=== PATIENT | male | born 1940 | race Caucasian/White ===

== ENCOUNTER → 2019-05-02 | Outpatient (CLI) | payer MEDICARE ==
[~2019-05-02] MED LIST: ACHYD1T PO; ALEN70TA5 PO; ALN70T PO; ASPI-587 PO; ASPI-983 PO; BUDE6HFA IH; CALC625T68 PO; CEFD300C3 PO; DCS100C PO; DOCU100C37 PO; FISH1CAP15 PO; FLUT16SP22 NS; FLUT1BLS IH; FURO20TA4 PO; GUAI-367 PO; GUAI600T43 PO; HYDR-3816 PO; HYDR1TAB75 PO; IPRA3AMP IH; IPRA3AMP31 IH; LEVO500T80 PO; LISI10TA2 PO; LORA-877 PO; LORA0.5T PO; LORA1TAB59 PO; MAGN400C PO; MAGNESIUM W/ZINC PO; MONT10TA24 PO; MULT-974 PO; MULT-993 PO; NICO-588 TD; OXYM30SP NS; PRED10TA22 PO; RANI150T11 PO; RANI75TA30 PO; RT-ALBUTEROL SULF 2.5 MG/3 ML PRE-MIX VIAL INH ONE; TAMS0.4C98 PO; TMSL.4C PO; TRIA10.8 NS; ZLP10T PO; ZOLP5TAB7 PO; Zolpidem Tartrate PO
== END ==
LOC: RT 10:25
PROVIDERS: ATTEND Internal Medicine Critical Care Medicine
DX: J44.9 Chronic obstructive pulmonary disease, unspecified (principal)
CPT/HCPCS: 94060; 94726; 94729

== ENCOUNTER 2019-05-09 12:44 | Outpatient (RCR) | payer MEDICARE ==
[~2019-05-09 12:44] MED LIST changes: -RT-ALBUTEROL SULF 2.5 MG/3 ML PRE-MIX VIAL INH ONE
[2019-05-17 10:25] VITALS: BP 123/50
[2019-05-17 11:30] VITALS: BP 114/40
[2019-05-19 10:10] VITALS: BP 116/40
[2019-05-19 11:23] VITALS: BP 120/70
[2019-05-24 10:45] VITALS: BP 97/50
[2019-05-24 11:45] VITALS: BP 102/60
[2019-05-26 10:20] VITALS: BP 118/54
[2019-05-26 11:40] VITALS: BP 118/60
[2019-05-31 10:15] VITALS: BP 118/60
[2019-05-31 11:27] VITALS: BP 123/60
[2019-06-07 10:30] VITALS: BP 110/50
[2019-06-07 12:00] VITALS: BP 108/54
[2019-06-09 11:00] VITALS: BP 115/50
[2019-06-14 09:30] VITALS: BP 108/50
[2019-06-16 10:10] VITALS: BP 128/50
[2019-06-16 11:40] VITALS: BP 128/60
[2019-06-21 10:45] VITALS: BP 120/52
[2019-06-21 12:00] VITALS: BP 150/60
[2019-06-23 10:45] VITALS: BP 130/60
[2019-06-23 11:42] VITALS: BP 125/60
[2019-06-28 10:45] VITALS: BP 140/60
[2019-06-28 11:35] VITALS: BP 130/60
[2019-06-28 11:50] VITALS: BP 130/60
[2019-06-30 10:30] VITALS: BP 120/60
[2019-06-30 11:38] VITALS: BP 120/57
[2019-07-05 10:45] VITALS: BP 120/60
[2019-07-05 12:00] VITALS: BP 140/60
[2019-07-07 10:30] VITALS: BP 112/58
[2019-07-07 11:34] VITALS: BP 118/58
[2019-07-12 10:45] VITALS: BP 130/60
[2019-07-12 11:54] VITALS: BP 120/60
[2019-07-14 10:45] VITALS: BP 118/60
[2019-07-14 11:54] VITALS: BP 102/64
[2019-07-19 10:30] VITALS: BP 97/50
[2019-07-19 11:30] VITALS: BP 104/60
== END 2019-08-07 | disposition home or self-care (01) ==
LOC: RT 12:44
PROVIDERS: ATTEND Internal Medicine Critical Care Medicine
DX: J44.9 Chronic obstructive pulmonary disease, unspecified (principal)
CPT/HCPCS: 99211

== ENCOUNTER 2020-02-08 21:24 | Emergency (ER) | payer MEDICARE ==
[~2020-02-08] VITALS: Ht 167.7 cm; Wt 63.4 kg
[~2020-02-08 21:24] MED LIST changes: +HYDR-34 PO; -HYDR-3816 PO; -MONT10TA24 PO; +MONT10TA26 PO; -TAMS0.4C98 PO
--- NOTE | 2020-02-08 22:27 | ED General ---
General Chief Complaint: Skin/Wound Problems Stated Complaint: EAR BIOPSY SITE BROKEN OPEN Nursing Triage Note: pt had right ear biopsy today for possible skin cancer. pt previously has had partial removal of upper ear for skin cancer on the right. dressing removed and new dressing applied Nursing Sepsis Screen: No Definite Risk Source of Information: Patient, Spouse History of Present Illness Date Seen by Provider: Feb 08, 2020 Time Seen by Provider: 22:26 Initial Comments 79-year-old male presenting with bleeding from biopsy site on his right ear. He was in [place] today and had been area on his right ear that was possibly infected and possibly cancerous. The rubber boots and shoes repairer had performed a biopsy of the site. There was oozing and bleeding but it was cauterized prior to them leaving the clinic. However in the trip from [place] to home but it started this. After getting home the oozing continued to get heavier in the degree of bleeding. When they could not get the bleeding to stop and be controlled at home they came to the emergency department to have it evaluated. He does not take any blood thinner other than aspirin. He is not having any significant pain with his ear. He has no fever or chills. His thinks that maybe the oxygen tubing he wears had rubbed against the biopsy site and caused it to start bleeding. Also he had been picking at the wound some on the trip home. Allergies and Home Medications Allergies Coded Allergies: No Known Drug Allergies (Unverified , 04/13/19) Home Medications Alendronate Sodium 70 Mg Tablet, 70 MG PO Mo, (Reported) Aspirin 81 Mg Tablet.dr, 81 MG PO HS, (Reported) Cefdinir 300 Mg Capsule, 300 MG PO BID Prescribed by: JAYESH GOVEA on 04/19/19 1013 Docusate Sodium 100 Mg Capsule, 200 MG PO BID, (Reported) TAKES 2 (100MG) CAPSULES Fish Oil/Dha/Epa 1 Each Capsule, 2,400 MG PO BID, (Reported) Fluticasone Propionate 16 Gm [place].susp, 2 SPRAYS NS DAILY, (Reported) Fluticasone/Vilanterol 1 Each Blst.w.dev, 1 PUFF IH HS, (Reported) Furosemide 20 Mg Tablet, 40 MG PO MoWeFr, (Reported) TAKES 2 (20MG) TABLETS Guaifenesin 600 Mg Tab.er.12h, 600 MG PO BID Prescribed by: JAYESH GOVEA on 04/19/19 1013 Guaifenesin/Dextromethorphan 1 Each Tab.er.12h, 1 TAB PO Q12H, (Reported) Hydrocodone Bit/Acetaminophen 1 Each Tablet, 1 TAB PO Q6H PRN for PAIN-MODERATE, (Reported) Ipratropium/Albuterol Sulfate 3 Ml Ampul.neb, 3 ML IH Q4H PRN for SHORTNESS OF BREATH, (Reported) Lisinopril 10 Mg Tablet, 10 MG PO DAILY, (Reported) Loratadine/Pseudoephedrine 1 Each Tab.er.24h, 1 TAB PO DAILY, (Reported) Lorazepam 0.5 Mg Tablet, 0.5 MG PO Q8H PRN for ANXIETY Prescribed by: JAYESH GOVEA on 04/20/19 1102 Magnesium Oxide 400 Mg Capsule, 400 MG PO HS, (Reported) Montelukast Sodium 10 Mg Tablet, 10 MG PO HS Prescribed by: JAYESH GOVEA on 04/19/19 1013 Multivits-Minerals/FA/Lycopene 1 Each Tablet, 1 TAB PO DAILY, (Reported) Nicotine 1 Each Patch.td24, 21 MG TD DAILY Prescribed by: JAYESH GOVEA on 04/19/19 1013 Prednisone 10 Mg Tab.ds.pk, 10 MG PO DAILY Take 6 tabs(60mg)daily,decrease by 1 tab(10MG)daily. Prescribed by: JAYESH GOVEA on 04/19/19 1013 Ranitidine HCl 150 Mg Tablet, 75 MG PO BID, (Reported) TAKES 1/2 (150MG) TABLET Tamsulosin HCl 0.4 Mg Cap, 0.4 MG PO DAILY, (Reported) Triamcinolone Acetonide 10.8 Ml [place], 2 SPRAYS NS HS, (Reported) Zolpidem Tartrate 5 Mg Tablet, 5 MG PO HS, (Reported) [Zolpidem Tartrate] 5 MG TAB, 0 MG PO HS Prescribed by: JAYESH GOVEA on 04/20/19 1102 Patient Home Medication List Home Medication List Reviewed: Yes Review of Systems Review of Systems Constitutional: No chills, No fever EENTM: see HPI Respiratory: no symptoms reported Cardiovascular: no symptoms reported Gastrointestinal: no symptoms reported Genitourinary: no symptoms reported Musculoskeletal: no symptoms reported Skin: see HPI Psychiatric/Neurological: No Symptoms Reported Hematologic/Lymphatic: See HPI Past Egyhcjs-Xvlqni-Hslxxj Hx Past Med/Social Hx: Reviewed Nursing Past Med/Soc Hx Patient Social History Alcohol Use: Denies Use Recreational Drug Use: No Type Used: Cigarettes 2nd Hand Smoke Exposure: Yes Recent Foreign Travel: No Contact w/Someone Who Travel: No Recent Infectious Disease Expo: No Physical Abuse: No Sexual Abuse: No Mistreated: No Fear: No Immunizations Up To Date Date of Pneumonia Vaccine: Sep 14, 2017 Date of Influenza Vaccine: Aug 30, 2013 Seasonal Allergies Seasonal Allergies: No Past Medical History Surgeries: Yes CABG Respiratory: Yes COPD Cardiac: Yes Chronic Edema/Swelling, Coronary Artery Disease, High Cholesterol, Hypertension Neurological: No Genitourinary: Yes Prostate Problems Gastrointestinal: No (CONSTIPATION) Musculoskeletal: Yes (ARTHRITIS) Endocrine: No HEENT: No Cancer: Yes Prostate Psychosocial: No Integumentary: No Blood Disorders: No Adverse Reaction/Blood Tranf: No Family Medical History No Pertinent Family Hx Physical Exam Vital Signs Vital Signs - First Documented 02/08/20 22:00 Temp 36.6 Pulse 75 Resp 18 B/P (MAP) 163/60 (94) Pulse Ox 97 O2 Delivery Room Air Capillary Refill : Less Than 3 Seconds Height, Weight, BMI Height: 5'7.00" Weight: 146lbs. 0.2oz. [id number]; 22.00 BMI Method:Stated General Appearance: No Apparent Distress, WD/WN HEENT: PERRL/EOMI, Moist Mucous Membranes, Other (bleeding from the biopsy site on the right pinna) Neck: Full Range of Motion, Normal Inspection, Non Tender, Supple Respiratory: Chest Non Tender, Lungs Clear, Normal Breath Sounds Cardiovascular: Regular Rate, Rhythm Neurologic/Psychiatric: Alert, Oriented x3 Skin: Normal Color, Warm/Dry Procedures/Interventions Wound Location: Ears Wound Length (cm): 0.3 Wound's Depth, Shape: superficial, irregular Wound Explored: clean Progress The biopsy site that was oozing on his right pinna was approximately 0.3 cm and irregular. This was cauterized with a silver nitrate stick. He tolerated procedure well without any immediate complications. Bleeding was well-controlled without any additional bleeding at the time of discharge. Progress/Results/Core Measures Suspected Sepsis Recent Fever Within 48 Hours: No Infection Criteria Present: None New/Unexplained Altered Menta: No Sepsis Screen: No Definite Risk SIRS Temperature: Pulse: 75 Respiratory Rate: 18 Blood Pressure 163 /60 Mean: 94 Results/Orders Vital Signs/I&O 02/08/20 02/08/20 22:00 23:07 Temp 36.6 Pulse 75 65 Resp 18 18 B/P (MAP) 163/60 (94) 156/59 Pulse Ox 97 98 O2 Delivery Room Air Room Air Capillary Refill : Less Than 3 Seconds Blood Pressure Mean: 94 Progress Note : Progress Note Using a silver nitrate stick the area of oozing on his right pinna was isolated and then cauterized. This controlled his bleeding and he had no further bleeding or oozing while in the ED. Counseled on follow up and return precautions. Advised to hold constant pressure for 5 minutes if it started to bleed again. Tape the oxygen tubing to his face to prevent it from rubbing on his wound of the right pinna for the next few days. Departure Impression Primary Impression: Lesion of pinna Qualified Codes: H61.101 - Unspecified noninfective disorders of pinna, right ear Additional Impression: Bleeding from wound Disposition: HOME, SELF-CARE Condition: Stable Departure-Patient Inst. Decision time for Depature: 23:02 Referrals: AUBREY GRAY MD (PCP/Family) Primary Care Physician Patient Instructions: Wound Care (DC) Add. Discharge Instructions: Keep wound clean and follow directions from your surgeon in [place]. Try taping your oxygen tubing to your face for the next few days to avoid it rubbing on your ear. If you have more bleeding try holding direct pressure for 5 minutes solid. If this does not get the bleeding to stop then you could return and have it cauterized again in the ER or clinic. All discharge instructions reviewed with patient and/or family. Voiced understanding. Images Ear 1 - Laceration (Prior resection of pinna) 2 - Blood (area of bleeding/oozing from biopsy) SHANICE BHAT MD Feb 08, 2020 22:26
--- NOTE | 2020-02-08 23:00 | NUR ---
Dr miller cauterized wound with silver nitrate, wound cleaned with soap and water, turban head drsg placed, no bleeding noted.
[2020-02-08 23:07] VITALS: BP 156/59
--- OUTSIDE RECORDS SUMMARY | 2020-02-10 23:52 | XMS REPORT | Encounter Summary ---
Author Author [facility] Organization [facility] Address Unknown Phone Unavailable Care Team Providers Care Child Welfare Counselor Name Role Phone Rafiq Solorio MD Unavailable Darrell Kemp PA-C Unavailable Unavailable Sandrine Meeks COMIC BOOK ARTIST-MATTRESS INSPECTOR Unavailable [phone] Ying Arevalo RN Unavailable Unavailable Liam Mitchell MD Unavailable Unavailable Arlette Healy RN Unavailable Unavailable Yessy Brownlee RN Unavailable Unavailable Pardeep Bettencourt RN Unavailable Unavailable Kimmie Sanchez LPN Unavailable Unavailable Cammie Nation MD PCP Unavailable Reason for Visit * Reason Comments Follow-up Phone Call Encounter Details Care Team Description Date Type Department Gaby Spivey PA-C [address] [facility] [address] [place] [address] Follow-up Phone Call 01/26/2020 Telephone [facility] [address] [place] [address] Social History Date Tobacco Use Types Packs/Day Years Used Current Every Day Smoker Cigarettes 1.5 60 Smokeless Tobacco: Never Used Comments: Counseling given 12.4.14 Drinks/Week oz/Week Comments Alcohol Use No Sex Assigned at Date Recorded Not on file Industry Job Start Date Occupation Not on file Not on file Not on file Travel End Travel History Travel Start No recent travel history available. documented as of this encounter Functional Status Date of Assessment Functional Status Response 04/12/2015 Does the patient have a hearing impairment: No 04/12/2015 Does the patient have a visual impairment: Yes 04/12/2015 Does the patient have impaired ambulation: No 04/12/2015 Does the patient have an activity of daily living No (ADL) impairment: 04/12/2015 Does the patient have an instrumental activity of No daily living (IADL) impairment: Date of Assessment Cognitive Status Response 04/12/2015 Does the patient have a cognitive impairment: No documented as of this encounter Miscellaneous Notes * Telephone Encounter - Millie Mason MA - 01/26/2020 4:02 PM [employer]IRY FARMER Arline lackey/Dr. Mooney's office return call and confirm message received left by Rachelle walton. [employer] FARMER * Telephone Encounter - Gaby Spivey PA-C - 01/26/2020 3:24 PM [employer] Called and left message for the patient's public housing manager regarding right ear lesi on that may need biopsy at the patient's next visit. [employer]ER * Telephone Encounter - Gaby Spivey PA-C - 01/26/2020 3:24 PM [employer]ER ----- Message from Gaby Spivey PA-C sent at 01/24/2020 4:33 PM DAIRY FARMER ----- Call Dr. Mooney at [phone] regarding the patient's new ear lesion on right pinna. Y [employer]ARMER documented in this encounter Plan of Treatment Not on filedocumented as of this encounter Visit Diagnoses Not on filedocumented in this encounter
--- OUTSIDE RECORDS SUMMARY | 2020-02-10 23:52 | XMS REPORT | Encounter Summary ---
Author Author [facility] Organization [facility] Address Unknown Phone Unavailable Care Team Providers Care Estimator Jewelry Name Role Phone Rafiq Solorio MD Unavailable Darrell Kemp PA-C Unavailable Unavailable Sandrine Meeks PBX TEACHER-CHECK INSPECTOR Unavailable [phone] Ying Arevalo RN Unavailable Unavailable Liam Mitchell MD Unavailable Unavailable Arlette Healy RN Unavailable Unavailable Yessy Brownlee RN Unavailable Unavailable Pardeep Bettencourt RN Unavailable Unavailable Kimmie Sanchez LPN Unavailable Unavailable Cammie Nation MD PCP Unavailable Reason for Visit * Reason Comments Cancer Surveillance Encounter Details Care Team Description Date Type Department Gaby Spivey PA-C [address] [facility] [address] [place] [address] Skin cancer, basal cell (Primary Dx); History of irradiation, presenting hazards to health; Warthin's tumor; Impacted cerumen of both ears 01/24/2020 Office Visit [facility] [address] [place] [address] Social History Date Tobacco Use [...] history available. documented as of this encounter Last Filed Vital Signs Reading Time Taken Comments Vital Sign 151/66 01/24/2020 10:55 AM INSOLE TACK PULLER HAND Blood Pressure 69 01/24/2020 10:55 AM INSOLE TACK PULLER HAND Pulse - - Temperature - - Respiratory Rate - - Oxygen Saturation - - Inhaled Oxygen Concentration 66.7 kg (147 lb) 01/24/2020 10:55 AM INSOLE TACK PULLER HAND Weight 167.6 cm (5' 6") 01/24/2020 10:55 AM INSOLE TACK PULLER HAND Height 23.73 01/24/2020 10:55 AM INSOLE TACK PULLER HAND Body Mass Index documented in this encounter Functional Status Date of Assessment [...] impairment: No documented as of this encounter Progress Notes * Gaby Spivey PA-C - 01/24/2020 10:30 AM INSOLE TACK PULLER HAND Date of Service: 01/24/2020 Subjective: Raymond Ortiz is a 79 y.o. male. History of Present Illness DIAGNOSIS: ICD-9-CM ICD-10-CM 1. Skin cancer, basal cell 173.91 C44.91 2. History of irradiation, presenting hazards to health V15.3 Z92.3 3. 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 Close margins and adjuvant XRT locally, comple josé therapy 03/19/15 (complete 25/30 doses, had to stop from radiation burning an d thrush),now 4 years 10 months out. PRESENT THERAPY: [facility] surveillance CHANGE SINCE LAST INTERVENTION: The patient presents with his today. They d o not like frequent trips to . The patient follows with Dr. Josh Mooney in [place], [place] ([phone]) for dermatology checks every 3 months. The patient stat es that he has no new lesions, but during the exam states that there has been a little bleeding from the right superior pinna, a site of previous BCC. Lesion cuello s been present for several months. Patient states that Dr. Mooney has seen it. T he patient also continues to follow up with cardiology (Dr. Daily) and pulmonolo gy (Dr. Mckenzie) in [place]. Dr. Mckenzie follows the patient's CT Chest ser ially and this last time, there was a new lung nodule. Next CT C will be 01/31/20 to check on this. The patient has COPD, uses oxygen daily and continues to smoke , though he has decreased his smoking to 6-7 cigarettes a day. Mr. Ortiz returns today for routine surveillance in the [facility]. Denies new and concerning symptoms. Denies sore throat, otalgia, new neck masses , changes in facial movement and sensation, new swallow problems, voice changes, fever, night sweats, oral lesions, pain and weight loss. Denies hospitalizations, surgeries and changes in medical history since last see n. Medical History: Diagnosis Date Arthritis Cancer (HCC) Chronic lung disease Heart disease High cholesterol Lung disease On supplemental oxygen therapy Seasonal allergic reaction Tobacco abuse Surgical History: Procedure Laterality Date CARDIAC SURGERY 08.16.2000 HX HEART CATHETERIZATION Family History Problem Relation Age of Onset Cancer Sister COPD Sister Diabetes Sister Cancer Sister Cancer Brother Cancer Brother Alzheimer's Brother Social History Socioeconomic History Marital status: Spouse name: Not on file Number of children: 2 Years of education: 12 Highest education level: Not on file Occupational History Employer: RETIRED Tobacco Use Smoking status: Current Every Day Smoker Packs/day: 1.50 Years: 60.00 Pack years: 90.00 Types: Cigarettes Smokeless tobacco: Never Used Tobacco comment: Counseling given 11.02.14 Substance and Sexual Activity Alcohol use: No Drug use: No Sexual activity: Never Other Topics Concern Not on file Social History Narrative Not on file Hearing: fair according to Dentition: edentulous, no dentures today Lymphedema: no change Cognitive Function: stable x 10+ years, though not a great memory according to h is Skin Changes: See HPI, derm continues to freeze off lesions at every 3 month vis it Energy Level: Low, attributed to back pain Thyroid: no thyroid medication TSH Lab Results Component Value Date/Time TSH 1.470 09/06/2018 11:23 AM Xerostomia: stable, patient is a mouthbreather Hx of TIA or Stroke: none Drinking: none Smokin-7 cigarettes a day, decreased from 15/ day last year Taste: ok, no complaint Vertigo: none Reflux: Hiatal hernia and so he stays away from stuff that aggravates his stomac h.They are careful with foods, longstanding Spinal accessory nerve palsy: none Cervical Dystonia/Muscle Spasms/Neuropathies: none Shoulder Dysfuntion: noen Trismus: none Body and Self Image: not concerned Pain Rating: Pain addressed as indicated. Patient declines intervention and Pt has had multip le specialists look at his back and do not recommend surgery or other interventi on. ECOG performance status is 1, Restricted in physically strenuous activity but am bulatory and able to carry out work of a light or sedentary nature, e.g., light house work, office work. Review of Systems Constitutional: Negative. HENT: Negative. Eyes: Negative. Respiratory: Negative. Cardiovascular: Negative. Gastrointestinal: Negative. Endocrine: Negative. Genitourinary: Negative. Musculoskeletal: Positive for back pain. Skin: Negative. Allergic/Immunologic: Negative. Neurological: Negative. Hematological: Negative. Psychiatric/Behavioral: Positive for sleep disturbance (due to back pain). Objective: ALBUTEROL IN Inhale by mouth into the lungs four times daily. albuterol-ipratropium (DUO-NEB, DUO-VENT) 0.5 mg-3 mg(2.5 mg base)/3 mL nebu lizer solution Inhale 3 mL solution as directed four times daily. alendronate (FOSAMAX) 10 mg tablet Take 70 mg by mouth daily before breakfas t. aspirin EC 81 mg tablet Take 1 Tab by mouth daily. budesonide/formoterol fumarate (SYMBICORT IN) Inhale by mouth into the lung s as Needed. docusate (COLACE) 100 mg capsule Take 300 mg by mouth every morning and 200m g by mouth every evening fish oil /omega-3 fatty acids (SEA-OMEGA) 340/1000 mg capsule Take 2 Caps by mouth twice daily. fluticasone (FLONASE) 50 mcg/actuation nasal spray Apply 2 Sprays to each no stril as directed daily. fluticasone-vilanterol(+) (BREO ELLIPTA) 100-25 mcg inhalation disk Inhale 1 puff by mouth into the lungs as Needed. furosemide (LASIX) 20 mg tablet Take 20 mg by mouth daily. HYDROcodone-acetaminophen(+) (NORCO) 7.5-325 mg tablet Take 1 Tab by mouth t wice daily as needed. levocetirizine 5 mg tab Take 5 mg by mouth nightly as needed. lisinopril (PRINIVIL; ZESTRIL) 10 mg tablet Take 10 mg by mouth at bedtime d aily. loratadine/pseudoephedrine (CLARITIN-D 12 HOUR) 5/120 mg tablet Take 1 Tab b y mouth daily. MAG ASP/PYRIDOXINE HCL/ZINC (ZINC MAGNESIUM ASPARTATE PO) Take by mouth. Ta ke 400mg magnesium/ zinc gluconate 15mg every night other medication 1 Dose. toenail fungus medicine Psyllium Husk (FIBER) 0.52 gram cap Take by mouth daily. Take two packages by mouth every morning and two every night raNITIdine (ZANTAC) 75 mg tablet Take 75 mg by mouth twice daily. senna (SENOKOT) 8.6 mg tablet Take 2 Tabs by mouth as Needed. tamsulosin (FLOMAX) 0.4 mg capsule Take 0.4 mg by mouth daily. TRELEGY ELLIPTA 100-62.5-25 mcg dsdv vitamins, multiple cap Take 1 Cap by mouth daily. ZOLPIDEM TARTRATE (AMBIEN PO) Take by mouth. Vitals: 01/24/20 1055 BP: (!) 151/66 BP Source: Arm, Right Upper Patient Position: Sitting Pulse: 69 Weight: 66.7 kg (147 lb) Height: 167.6 cm (66") PainSc: Seven Body mass index is 23.73 kg/m. Physical Exam General: Well-developed, well-nourished, elderly Communication and Voice: Clear pitch and clarity Hearing: Hearing adequate for verbal communication bilaterally Inspection: Normocephalic and atraumatic without mass or lesion Palpation: Facial skeleton intact without bony stepoffs Parotid Glands: No mass or tenderness Facial Strength: Facial motility symmetric and full bilaterally Pinna: right pinna with previous surgery, cartilage missing, small abrasion on the right superior pinna with serous fluid and bleeding, left pinna intact and f ully developed External canal: Canal is patent with intact skin, impacted cerumen AU Tympanic Membrane: Unable to visualize External nose: No scar or anatomic deformity Internal Nose: Septum intact and midline. No edema, polyp, or rhinorrhea. TMJ: No pain to palpation with full mobility Oral cavity, Lips, Teeth, and Gums: Mucosa intact and viable, No lesions, kathleen s or ulcers; edentulous, right lower lip is full and stable (dog ear) Oropharynx: No erythema or exudate, no masses or ulcerations, non-obstructive to nsils Nasopharynx: No mass or lesion with intact mucosa Hypopharynx: Not well visualized secondary to gagging Larynx: Not well visualized secondary to gagging Neck, Trachea, Lymphatics: Midline trachea without mass or lesion, no lymphaden opathy Thyroid: No mass or nodularity Eyes: No nystagmus with equal extraocular motion bilaterally, PERRL Neuro/Psych/Balance: Patient oriented and appropriate in interaction; Appropria te mood and affect; Gait is intact with no imbalance; Cranial nerves I-XII are intact Respiratory effort: Equal inspiration and expiration without stridor Peripheral Vascular: Warm extremities Prostate: h/o prostate cancer, watched by urology Carotid US: Never Under microscopic visualization, impacted cerumen was removed from bilateral ext ernal auditory canal with cerumen curettes. The tympanic membrane appears intac t AU, and the middle ear was clear AU. Patient tolerated the procedure well wit hout any complications. Assessment and Plan: SURVIVORSHIP ASSESSMENT AND CARE PLAN: Raymond Ortiz is a 79 y.o. male with a history of direct laryngoscopy, left payne perficial parotidectomy, anterior table marginal mandibular composite resection with labial alveolar resection and radical resection of chin/lower lip and subse quent bilateral advancement flap and closure of chin defect 6 x 7 cm on 12/04/14. 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 Close margins and adjuvant XRT local ly, completed therapy 03/19/15 (complete 25/30 doses, had to stop from radiation burning and thrush),now 4 years 10 months out.. Follow up 9-12 months. Patient should follow up with derm as planned. Will call Dr. Mooney to make him aware of the right pinna lesion. Removed cerumen today. Reviewed signs to watch for that could indicate a local or distant recurrence. P atient will call our office with any new signs. Local recurrence Signs and symptoms of local recurrence: Loss of appetite or unintentional weight loss New swallowing problems Lesions in the mouth that will not heal within 2 weeks and/or bleeding from the mouth Sore throat without being sick that will not resolve in 2 weeks or new ear pain without being sick Fever and/or night sweats without being sick Hoarse voice without being sick New lump or bump of the neck LE TACK PULLER HAND * Millie Mason MA - 01/24/2020 10:30 AM INSOLE TACK PULLER HAND Pre Visit Planning- Return Patient Last office visit note reviewed: Yes Records received: Yes Orders have been NA Patient active in [email or web address]. No appointment reminder sent. Imaging: Yes Special Equipment: N/A CT CHEST W CONTRAST Narrative: CT CHEST Clinical Indication: Male, 77 years old. Lung nodules. Technique: Multiple contiguous axial images were obtained through the chest foll owing administration of IV contrast material. Post processing coronal and sagitt al reconstruction images were made from the axial images. IV contrast: Omnipaque 350 Comparison: July 02, 2017 FINDINGS: Lower neck: Unremarkable. Axilla, Mediastinum and Ivrgie: No thoracic lymphadenopathy. Heart and Great Vessels: The heart size is normal without pericardial effusion. Prior median sternotomy and CABG. Marked grand traverse calcific coronary artery disease . The thoracic aorta is normal caliber with moderate mixed atherosclerotic plaqu e. Airway, Lungs and Pleura: Mild emphysema and scattered areas of scarring are aga in noted. Mild central bronchial wall thickening is again noted compatible with chronic bronchitis. Nodule in the left lung apex remains unchanged measuring 1.0 cm (2-9), unchanged since the first available study of November 21, 2014. Addit ional tiny perifissural nodules are also unchanged. Development of a few small c lustered nodular opacities in the inferior right lower lobe (series 2, images 51 -55) and ill-defined opacities in the right upper lobe (series 2, images 12 and 18). Chest Wall and Osseous Structures: Mild symmetric gynecomastia. No destructive o sseous lesions. Upper abdomen: Stable tiny hypodensity in the superior left hepatic lobe (2-24). Tiny probable right renal cyst is noted. Mild low-density thickening of the left adrenal gland remains unchanged since the first available study compatible with hyperplasia or adenomas. Right lower pole nonobstructing renal calculi. Left r enal vascular calcifications. Impression: 1. Development of tiny clustered and irregular nodular opacities in the right upper and lower lobes, which are likely infectious or inflammatory. Fo llow-up CT chest is recommended in 3 months for reevaluation. 2. Additional previously seen small pulmonary nodules are not significantly moctezuma ged, which likely reflect benign scars or granulomas. 3. Stable mild emphysema and bronchial wall thickening consistent with COPD. 4. Calcific coronary artery disease with prior CABG. Approved by Jesse Trivedi M.D. on 10/29/2018 5:08 PM By my electronic signature, I attest that I have personally reviewed the images for this examination and formulated the interpretations and opinions expressed i n this report Finalized by PEDRO HOLLOWAY M.D. on 10/29/2018 5:59 PM. Dictated by Jesse camara M.D. on 10/29/2018 1:43 PM. 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
--- OUTSIDE RECORDS SUMMARY | 2020-02-10 23:52 | XMS REPORT | Clinical Summary ---
Author Author [facility] Organization [facility] Address Unknown Phone Unavailable Care Team Providers Care Car Rental Sales Assistant Name Role Phone Rafiq Solorio MD Unavailable Darrell Kemp PA-C Unavailable Unavailable Sandrine Meeks FOUNTAIN DISPENSER-RISK PROFESSIONAL Unavailable [phone] Ying Arevalo RN Unavailable Unavailable Liam Mitchell MD Unavailable Unavailable Arlette Healy RN Unavailable Unavailable Yessy Brownlee RN Unavailable Unavailable Pardeep Bettencourt RN Unavailable Unavailable Kimmie Sanchez LPN Unavailable Unavailable Cammie Nation MD PCP Unavailable Source Comments Some departments are not documenting in the electronic medical record. If you d o not see the information that you expected, contact Release of Information in [facility] Health Information Management department at [phone] for further assistan ce in locating additional records.[facility] Allergies No Known Allergies Medications End Date Status Medication Sig Dispensed Refills Start Date Active alendronate (FOSAMAX) 10 Take 70 mg by 0 mg tablet mouth daily before breakfast. Active vitamins, multiple cap Take 1 Cap by 0 mouth daily. Active fish oil /omega-3 fatty Take 2 Caps 0 acids (SEA-OMEGA) by mouth 340/1000 mg capsule twice daily. Active docusate (COLACE) 100 mg Take 300 mg 0 capsule by mouth every morning and 200mg by mouth every evening Active Psyllium Husk (FIBER) Take by 0 0.52 gram cap mouth daily. Take two packages by mouth every morning and two every night Active tamsulosin (FLOMAX) 0.4 Take 0.4 mg 0 mg capsule by mouth daily. Active furosemide (LASIX) 20 mg Take 20 mg by 0 tablet mouth daily. Active fluticasone (FLONASE) 50 Apply 2 0 mcg/actuation nasal spray Sprays to each nostril as directed daily. Active lisinopril (PRINIVIL; Take 10 mg by 0 ZESTRIL) 10 mg tablet mouth at bedtime daily. Active loratadine/pseudoephedrin Take 1 Tab by 0 e (CLARITIN-D 12 HOUR) mouth daily. 5/120 mg tablet Active HYDROcodone-acetaminophen Take 1 Tab by 0 (+) (NORCO) 7.5-325 mg mouth twice tablet daily as needed. Active MAG ASP/PYRIDOXINE Take by 0 HCL/ZINC (ZINC MAGNESIUM mouth. Take ASPARTATE PO) 400mg magnesium/ zinc gluconate 15mg every night Active albuterol-ipratropium Inhale 3 mL 0 (DUO-NEB, DUO-VENT) 0.5 solution as mg-3 mg(2.5 mg base)/3 mL directed four nebulizer solution times daily. Active aspirin EC 81 mg tablet Take 1 Tab by 90 Tab 3 mouth daily. 5 Active senna (SENOKOT) 8.6 mg Take 2 Tabs 45 Tab 3 tablet by mouth as 5 Needed. Active other medication 1 Dose. 0 toenail fungus medicine Active ZOLPIDEM TARTRATE (AMBIEN Take by 0 PO) mouth. Active ALBUTEROL IN Inhale by 0 mouth into the lungs four times daily. Active budesonide/formoterol Inhale by 0 fumarate (SYMBICORT IN) mouth into the lungs as Needed. Active fluticasone-vilanterol(+) Inhale 1 puff 0 (BREO ELLIPTA) 100-25 mcg by mouth into inhalation disk the lungs as Needed. Active levocetirizine 5 mg tab Take 5 mg by 0 mouth nightly as needed. Active raNITIdine (ZANTAC) 75 mg Take 75 mg by 0 01/01 tablet mouth twice 4 daily. Active TRELEGY ELLIPTA 0 100-62.5-25 mcg dsdv 0 Active Problems Problem Noted Date Lung nodule 08/23/2015 History of irradiation, presenting hazards to health 04/12/2015 Warthin's tumor 12/28/2014 Elevated white blood cell count 12/08/2014 Basal cell carcinoma 12/04/2014 Preop examination 11/20/2014 Overview: 73M w/ 60pkyrTob, severe COPD, s/p CABG x5, prostate CA on radiation pellets, and Basal cell CA presented fo r pre-op evaluation. BCCa 2009, s/p excision. Recurred, saw a Mohs, Dr Manuel deluna, who referred to Dr Solorio. Surgery planned for 12/04/14. No chest pain, can walk up to [address] Jeevan lackey/ [facility]. In terms of COPD, recently seen in pulm clinic. Recommended to increase symbicort from qd to bid. Use Flonase 5 0 and Budesonide 160, lower than the levels recommended to test for adrenal insufficiency (750, and 1500, respectively.) 60pk yr Tob. Tried several things in e past. Does not want to quit. L ast Assessment & Plan: - Low-moderate risk candidate for low r isk surgery. - Tob cessation recommended, which aurelio ent is not interested in. - Advised patient to follow Cardiology and Pulm recs. Nocturnal hypoxemia 11/20/2014 Overview: No ELYSSA per patient report (tested twice ) Likely secondary to COPD. 3L DME: ? ([facility]) S/P CABG x 5 11/20/2014 Overview: Year 1999. Found after patient had L sh oulder numbness while fishing with his grandsons. Currently on Lisinopril 10mg qd. Follows with Dr Abhay Daily in 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 Follows with Dr Fritz in [place], [place]. PSA 9.7 initially, now 0.3 L ast Assessment & Plan: Follows w/ Oncologist. Plan to have ano ther radiation pellet in December Skin cancer, basal cell 11/02/2014 COPD (chronic obstructive pulmonary disease) 014 Overview: 10/2014 FEV1 1.66, 60%, ratio 50 Oxygen needs- 3L Inhaler Regimen Symbicort and albuterol Vaccinations Influenza-UTD Pneumococcal Smoking 1.5ppd L ast Assessment & Plan: Follows w/ Pulm Encounters Care Team Description Date Type Specialty Gaby Spivey PA-C Follow-up Phone Call 01/26/2020 Telephone Otolaryngology Allyssa, Gaby, PA-C Skin cancer, basal cell (Primary Dx); History of irradiation, presenting hazards to health; Warthin's tumor; Impacted cerumen of both ears 01/24/2020 Office Visit Otolaryngology from Last 3 Months Family History Medical History Relation Name Comments Cancer Brother Cancer Brother Alzheimer's Brother COPD Sister Cancer Sister Cancer Sister Diabetes Sister Relation Name Status Comments Brother Brother Brother Father Mother Sister Sister Sister Sister Social History Date Tobacco Use Types Packs/Day Years Used Current Every Day Smoker Cigarettes 1.5 60 Smokeless Tobacco: Never Used Tobacco Cessation: Ready to Quit: Yes; C ounseling Given: Yes Comments: Counseling given 12.4.14 Drinks/Week oz/Week Comments Alcohol Use No Sex Assigned at Date Recorded Not on file Industry Job Start Date Occupation Not on file Not on file Not on file Travel End Travel History Travel Start No recent travel history available. Last Filed Vital Signs Reading Time Taken Comments Vital Sign 151/66 01/24/2020 10:55 AM CONFECTIONERY COOKER Blood Pressure 69 01/24/2020 10:55 AM CONFECTIONERY COOKER Pulse 36.7 C (98.1 F) 12/08/2014 12:19 PM CONFECTIONERY COOKER Temperature 16 12/12/2014 1:29 PM CONFECTIONERY COOKER Respiratory Rate 98% 12/06/2014 8:06 AM CONFECTIONERY COOKER Oxygen Saturation - - Inhaled Oxygen Concentration 66.7 kg (147 lb) 01/24/2020 10:55 AM CONFECTIONERY COOKER Weight 167.6 cm (5' 6") 01/24/2020 10:55 AM CONFECTIONERY COOKER Height 23.73 01/24/2020 10:55 AM CONFECTIONERY COOKER Body Mass Index Plan of Treatment Health Maintenance Due Date Last Done Comments MEDICARE ANNUAL WELLNESS 1940 VISIT DTAP/TDAP VACCINES (1 - 1951 Tdap) PHYSICAL (COMPREHENSIVE) 1958 EXAM SHINGLES RECOMBINANT 1990 VACCINE (1 of 2) PNEUMONIA (PCV13/PPSV23) 2005 VACCINES (1 of 2 - PCV13) INFLUENZA VACCINE 06/30/2019 09/10/2016, 10/10/2015 Results Not on filefrom Last 3 Months Insurance Type Payer Benefit Subscriber ID Effective Phone Address Plan / Dates Group Medicare MEDICARE MEDICARE xxxxxxxxxxx 1997-P PART A AND resent B PPO [facility] AARP xxxxxxxxxxx 1997-P resent [phone] Advance Directives Patient Plastics Scientist Explanation Type Date Recorded Advance 11/03/2014 10:53 AM Directive/DPOA Date Inactivated Comments Code Status Date Activated 12/06/2014 2:14 PM Full Code 12/04/2014 6:12 PM Provider has discussed Code Status No, more discussi on w/Patient or Family? needed
--- OUTSIDE RECORDS SUMMARY | 2020-02-10 23:54 | XMS REPORT ---
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 Jul, 0 602345072 Problem Diverticulitis large intestine w/o perfo ration or abscess w/bleeding 562.13 Apr, 0 945270701 Problem Idiopathic pancreatitis K85.00 Jul, 0 179500372 Problem Thoracic aortic aneurysm without rupture 441.2 Jul, 0 08827041 Problem Diverticulitis large intestine w/o perforation o r abscess w/bleeding K57.33 Apr, 0 994793011 Problem CVD (cerebrovascular disease) I67.9 Dec, 12 0 45920626 Problem CVD (cerebrovascular disease) 437.9 Dec, 12 0 39741335 Problem Tobacco use Z72.0 Jul, 0 43754 3000 Problem CAD (coronary artery disease) I25.10 0 18522571 Problem Head and neck cancer 195.0 March, 0 971895409 Problem PVD (peripheral vascular disease) 443.9 Dec 0 384645764 Problem Head and neck cancer C76.0 March, 0 285343637 Problem COPD (chronic obstructive pulmonary disease) 496 0 46134734 Problem Tobacco use 305.1 Jul, 0 69077 3000 Problem Hyperlipidemia 272.4 0 48454 004 Problem CAD (coronary artery disease) 414.00 0 80334356 Problem PVD (peripheral vascular disease) I73.9 Dec 0 669705791 Problem 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 Jul, 0 99659937 Problem Hyperlipidemia E78.5 0 40398 004 Problem Hyperlipemia E78.5 Active 1474067 4 Problem COPD (chronic obstructive pulmonary disease) J44.9 Active 34382309 Problem Chronic obstructive pulmonary disease, unspecified COPD ty pe J44.9 Active 95259414 Problem Bilateral carotid artery stenosis I65.23 Jun 0 [id number] Problem Benign essential HTN I10 Active 61016298 Problem Bilateral carotid artery stenosis 433.10 Jun 0 [id number] Problem Degeneration of cervical intervertebral disc M50.3 0 11 Jul, 2013 0 22366900 Problem Coronary artery disease I25.10 Active 72369779 Problem Primary insomnia F51.01 Active 397 2004 Problem Thoracic aortic aneurysm without rupture I71.2 Active 99814946 Problem Peripheral vascular disease I73.9 Ac tive [id number] ALLERGIES No Information ENCOUNTERS Encounter Location Date Diagnosis [address] [address] Apr, [address] [address] March, [facility] [address] [facility] [id number] [address] [place] [address] Feb, [address] [address] Feb, [address] [address] Jan, [address] [address] Dec, Primary insomnia F51.01 ; Chronic obstru ctive pulmonary disease, unspecified COPD type J44.9 ; Benign essential HTN I10 and Thoracic aortic aneurysm without rupture I71.[address] [address] Dec, Benign essential HTN I10 [address] [address] Dec, [address] [address] Dec, Chronic obstructive pulmonary disease, u nspecified COPD type J44.[address] [address] Dec, [facility] [address] [facility] [id number] [address] [place] [phone] Oct, [facility] [address] [facility] [id number] [address] [place] [id number] Oct, [facility] [address] [facility] [id number] [address] [place] [phone] Oct, [facility] [address] [facility] [id number] [address] [place] [phone] Sep, [facility] [address] [facility] [id number] [address] [place] [phone] Sep, [facility] [address] [facility] [id number] [address] [place] [phone] Jul, IMMUNIZATIONS No Known Immunizations SOCIAL HISTORY Never Assessed REASON FOR VISIT Controlled Med Refill 02/04 PLAN OF CARE VITAL SIGNS MEDICATIONS Medication Instructions Dosage Frequency Start Date End Date Duration S angel Almaraz 7.5-325 MG Orally 4 times a day 1 tablet as needed 6h Jan, 28 days Active RESULTS No Results PROCEDURES No Known procedures INSTRUCTIONS MEDICATIONS ADMINISTERED No Known Medications MEDICAL (GENERAL) HISTORY Type Description Date Medical History Peripheral vascular disease Medical History Coronary artery disease Medical History Hyperlipemia Medical History COPD (chronic obstructive pulmonary dise ase) Medical History Cerebrovascular disease Medical History Thoracic aortic aneurysm without rupture Surgical History Chin Surgery Surgical History Kidney Surgery Surgical History Ear Surgery Surgical History Open Heart Surgery Hospitalization History Surgeries
--- OUTSIDE RECORDS SUMMARY | 2020-02-10 23:54 | XMS REPORT | Continuity of Care Document ---
Author Organization Unknown Address Unknown Phone Unavailable Allergies Active Description Code Type Severity Reaction Onset Reported/Identified Relationship to Patient Clinical Status Yes No Known Drug Allergies [id number] Drug Allergy Unknown N/A 04/13/2019 Medications There is no data. 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 04/09/2015 KY SHARIF MD E Ot 185 MALIGN NEOPL PROSTATE 04/09/2015 KY SHARIF MD Ot V58.0 ENCOUNTER FOR RADIOTHERAPY 10/18/2015 KY SHARIF MD E Ot 173.3 2 10/18/2015 KY SHARIF MD E Ot 185 10/18/2015 KY SHARIF MD E Ot 173.3 2 10/18/2015 KY SHARIF MD E Ot 185 11/09/2015 KY SHARIF MD E Ot C44.3 20 11/09/2015 KY SHARIF MD E Ot C61 11/22/2015 KY SHARIF MD E Ot C44.3 20 11/22/2015 KY SHARIF MD E Ot C61 04/19/2019 CHAO ADAME MD Ot C61 MALIGNANT NEOPLASM OF PROSTATE 04/19/2019 CHAO ADAME MD Ot E78.0 0 PURE HYPERCHOLESTEROLEMIA, UNSPECIFIED 04/19/2019 CHAO ADAME MD Ot E87.1 HYPO-OSMOLALITY AND HYPONATREMIA 04/19/2019 CHAO ADAME MD Ot F17.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 NICOTINE DEPENDENCE, CIGARETTES, UNCOMPL 04/19/2019 CHAO ADAME MD Ot F41.9 ANXIETY DISORDER, UNSPECIFIED 04/19/2019 CHAO ADAME MD Ot I10 ESSENTIAL (PRIMARY) HYPERTENSION 04/19/2019 CHAO ADAME MD R Ot I25.1 0 ATHSCL HEART DISEASE OF [place] CORONARY 04/19/2019 CHAO ADAME MD Ot J44.1 CHRONIC OBSTRUCTIVE PULMONARY DISEASE W 04/19/2019 CHAO ADAME MD Ot J96.2 0 ACUTE AND CHR RESP FAILURE, UNSP W HYPOX 04/19/2019 CHAO ADAME MD Ot M19.9 1 PRIMARY OSTEOARTHRITIS, UNSPECIFIED SITE 04/19/2019 CHAO ADAME MD Ot R06.4 HYPERVENTILATION 04/19/2019 CHAO ADAME MD Ot R60.9 EDEMA, UNSPECIFIED 04/19/2019 CHAO ADAME MD R Ot Z66 DO NOT RESUSCITATE 04/19/2019 CHAO ADAME MD Ot Z95.1 PRESENCE OF AORTOCORONARY BYPASS GRAFT 04/20/2019 CHAO ADAME MD R Ot C61 MALIGNANT NEOPLASM OF PROSTATE 04/20/2019 CHAO ADAME MD Ot E78.0 0 PURE HYPERCHOLESTEROLEMIA, UNSPECIFIED 04/20/2019 CHAO ADAME MD Ot E87.1 HYPO-OSMOLALITY AND HYPONATREMIA 04/20/2019 CHAO ADAME MD Ot F17.2 10 NICOTINE DEPENDENCE, CIGARETTES, UNCOMPL 04/20/2019 CHAO ADAME MD Ot F41.9 ANXIETY DISORDER, UNSPECIFIED 04/20/2019 CHAO ADAME MD Ot I10 ESSENTIAL (PRIMARY) HYPERTENSION 04/20/2019 CHAO ADAME MD Ot I25.1 0 ATHSCL HEART DISEASE OF [place] CORONARY 04/20/2019 CHAO ADAME MD Ot J44.1 CHRONIC OBSTRUCTIVE PULMONARY DISEASE W 04/20/2019 CHAO ADAME MD Ot J96.2 0 ACUTE AND CHR RESP FAILURE, UNSP W HYPOX 04/20/2019 CHAO ADAME MD Ot M19.9 1 PRIMARY OSTEOARTHRITIS, UNSPECIFIED SITE 04/20/2019 CHAO ADAME MD Ot R06.4 HYPERVENTILATION 04/20/2019 CHAO ADAME MD Ot R60.9 EDEMA, UNSPECIFIED 04/20/2019 CHAO ADAME MD Ot Z66 DO NOT RESUSCITATE 04/20/2019 CHAO ADAME MD Ot Z95.1 PRESENCE OF AORTOCORONARY BYPASS GRAFT 04/20/2019 CHAO ADAME MD Ot C61 MALIGNANT NEOPLASM OF PROSTATE 04/20/2019 CHAO ADAME MD Ot E78.0 0 PURE HYPERCHOLESTEROLEMIA, UNSPECIFIED 04/20/2019 CHAO ADAME MD Ot E87.1 HYPO-OSMOLALITY AND HYPONATREMIA 04/20/2019 CHAO ADAME MD Ot F17.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 NICOTINE DEPENDENCE, CIGARETTES, UNCOMPL 04/20/2019 CHAO ADAME MD Ot F41.9 ANXIETY DISORDER, UNSPECIFIED 04/20/2019 CHAO ADAME MD Ot I10 ESSENTIAL (PRIMARY) HYPERTENSION 04/20/2019 CHAO ADAME MD Ot I25.1 0 ATHSCL HEART DISEASE OF [place] CORONARY 04/20/2019 CHAO ADAME MD Ot J43.9 EMPHYSEMA, UNSPECIFIED 04/20/2019 CHAO ADAME MD Ot J44.1 CHRONIC OBSTRUCTIVE PULMONARY DISEASE W 04/20/2019 CHAO ADAME MD Ot J96.2 0 ACUTE AND CHR RESP FAILURE, UNSP W HYPOX 04/20/2019 CHAO ADAME MD Ot K59.0 1 SLOW TRANSIT CONSTIPATION 04/20/2019 CHAO ADAME MD Ot M19.9 1 PRIMARY OSTEOARTHRITIS, UNSPECIFIED SITE 04/20/2019 CHAO ADAME MD Ot R06.4 HYPERVENTILATION 04/20/2019 CHAO ADAME MD Ot R60.9 EDEMA, UNSPECIFIED 04/20/2019 CHAO ADAME MD Ot Z66 DO NOT RESUSCITATE 04/20/2019 CHAO ADAME MD Ot Z95.1 PRESENCE OF AORTOCORONARY BYPASS GRAFT 04/26/2019 CHAO ADAME MD Ot C61 MALIGNANT NEOPLASM OF PROSTATE 04/26/2019 CHAO ADAME MD Ot E78.0 0 PURE HYPERCHOLESTEROLEMIA, UNSPECIFIED 04/26/2019 CHAO ADAME MD Ot E87.1 HYPO-OSMOLALITY AND HYPONATREMIA 04/26/2019 CHAO ADAME MD Ot F17.2 10 NICOTINE DEPENDENCE, CIGARETTES, UNCOMPL 04/26/2019 CHAO ADAME MD Ot F41.9 ANXIETY DISORDER, UNSPECIFIED 04/26/2019 CHAO ADAME MD Ot I10 ESSENTIAL (PRIMARY) HYPERTENSION 04/26/2019 CHAO ADAME MD Ot I25.1 0 ATHSCL HEART DISEASE OF [place] CORONARY 04/26/2019 CHAO ADAME MD Ot J43.9 EMPHYSEMA, UNSPECIFIED 04/26/2019 CHAO ADAME MD Ot J96.2 0 ACUTE AND CHR RESP FAILURE, UNSP W HYPOX 04/26/2019 CHAO ADAME MD Ot K59.0 1 SLOW TRANSIT CONSTIPATION 04/26/2019 CHAO ADAME MD Ot M19.9 1 PRIMARY OSTEOARTHRITIS, UNSPECIFIED SITE 04/26/2019 CHAO ADAME MD Ot R60.9 EDEMA, UNSPECIFIED 04/26/2019 CHAO ADAME MD Ot Z66 DO NOT RESUSCITATE 04/26/2019 CHAO ADAME MD Ot Z95.1 PRESENCE OF AORTOCORONARY BYPASS GRAFT 04/26/2019 CHAO ADAME MD Ot C61 MALIGNANT NEOPLASM OF PROSTATE 04/26/2019 CHAO ADAME MD Ot E78.0 0 PURE HYPERCHOLESTEROLEMIA, UNSPECIFIED 04/26/2019 CHAO ADAME MD Ot E87.1 HYPO-OSMOLALITY AND HYPONATREMIA 04/26/2019 CHAO ADAME MD Ot F17.2 10 NICOTINE DEPENDENCE, CIGARETTES, UNCOMPL 04/26/2019 CHAO ADAME MD Ot F41.9 ANXIETY DISORDER, UNSPECIFIED 04/26/2019 CHAO ADAME MD Ot I10 ESSENTIAL (PRIMARY) HYPERTENSION 04/26/2019 CHAO ADAME MD Ot I25.1 0 ATHSCL HEART DISEASE OF [place] CORONARY 04/26/2019 CHAO ADAME MD Ot J43.9 EMPHYSEMA, UNSPECIFIED 04/26/2019 CHAO ADAME MD Ot J96.2 0 ACUTE AND CHR RESP FAILURE, UNSP W HYPOX 04/26/2019 CHAO ADAME MD Ot K59.0 1 SLOW TRANSIT CONSTIPATION 04/26/2019 CHAO ADAME MD Ot M19.9 1 PRIMARY OSTEOARTHRITIS, UNSPECIFIED SITE 04/26/2019 CHAO ADAME MD Ot R60.9 EDEMA, UNSPECIFIED 04/26/2019 CHAO ADAME MD Ot Z66 DO NOT RESUSCITATE 04/26/2019 CHAO ADAME MD Ot Z95.1 PRESENCE OF AORTOCORONARY BYPASS GRAFT 04/26/2019 CHAO ADAME MD Ot C61 MALIGNANT NEOPLASM OF PROSTATE 04/26/2019 CHAO ADAME MD Ot E78.0 0 PURE HYPERCHOLESTEROLEMIA, UNSPECIFIED 04/26/2019 CHAO ADAME MD Ot E87.1 HYPO-OSMOLALITY AND HYPONATREMIA 04/26/2019 CHAO ADAME MD Ot F17.2 10 NICOTINE DEPENDENCE, CIGARETTES, UNCOMPL 04/26/2019 CHAO ADAME MD Ot F41.9 ANXIETY DISORDER, UNSPECIFIED 04/26/2019 CHAO ADAME MD, Ot I10 ESSENTIAL (PRIMARY) HYPERTENSION 04/26/2019 CHAO ADAME MD Ot I25.1 0 ATHSCL HEART DISEASE OF [place] CORONARY 04/26/2019 CHAO ADAME MD Ot J43.9 EMPHYSEMA, UNSPECIFIED 04/26/2019 CHAO ADAME MD Ot J96.2 0 ACUTE AND CHR RESP FAILURE, UNSP W HYPOX 04/26/2019 CHAO ADAME MD Ot K59.0 1 SLOW TRANSIT CONSTIPATION 04/26/2019 CHAO ADAME MD Ot M19.9 1 PRIMARY OSTEOARTHRITIS, UNSPECIFIED SITE 04/26/2019 CHAO ADAME MD Ot R60.9 EDEMA, UNSPECIFIED 04/26/2019 CHAO ADAME MD Ot Z66 DO NOT RESUSCITATE 04/26/2019 CHAO ADAME MD Ot Z95.1 PRESENCE OF AORTOCORONARY BYPASS GRAFT 05/02/2019 ARSENIO DURAN MD Ot 185 MALIGN NEOPL PROSTATE 05/02/2019 ARSENIO DURAN MD Ot V72.8 3 EXAM PRE-OPERATIVE NEC 05/02/2019 ARSENIO DURAN MD, Ot V74.8 SCREEN-BACTERIAL DIS NEC 05/02/2019 KY SHARIF MD, Ot 185 MALIGN NEOPL PROSTATE 05/02/2019 KY SHARIF MD Ot C44.3 20 SQUAMOUS CELL CARCINOMA OF SKIN OF [place] 05/02/2019 KY SHARIF MD, Ot C61 MALIGNANT NEOPLASM OF PROSTATE 05/06/2019 STIVEN DO, BRANDEN M Ot J44. 9 CHRONIC OBSTRUCTIVE PULMONARY DISEASE, U 05/16/2019 STIVEN DOJAKEBRANDEN M Ot J44. 9 CHRONIC OBSTRUCTIVE PULMONARY DISEASE, U 05/19/2019 STIVEN DOJAKEBRANDEN M Ot J44. 9 CHRONIC OBSTRUCTIVE PULMONARY DISEASE, U 05/24/2019 STIVEN DO, BRANDEN M Ot J44. 9 CHRONIC OBSTRUCTIVE PULMONARY DISEASE, U 05/24/2019 STIVEN DOJAKEBRANDEN M Ot J44. 9 CHRONIC OBSTRUCTIVE PULMONARY DISEASE, U 05/26/2019 STIVEN DOJAKEBRANDEN M Ot J44. 9 CHRONIC OBSTRUCTIVE PULMONARY DISEASE, U 05/31/2019 STIVEN DO, BRANDEN M Ot J44. 9 CHRONIC OBSTRUCTIVE PULMONARY DISEASE, U 06/07/2019 STIVEN DOJAKEBRANDEN M Ot J44. 9 CHRONIC OBSTRUCTIVE PULMONARY DISEASE, U 06/09/2019 STIVEN DOJAKEBRANDEN M Ot J44. 9 CHRONIC OBSTRUCTIVE PULMONARY DISEASE, U 06/14/2019 STIVEN DOJAKEBRANDEN M Ot J44. 9 CHRONIC OBSTRUCTIVE PULMONARY DISEASE, U 06/21/2019 STIVEN DOJAKEBRANDEN M Ot J44. 9 CHRONIC OBSTRUCTIVE PULMONARY DISEASE, U 06/23/2019 STIVEN DOJAKEBRANDEN M Ot J44. 9 CHRONIC OBSTRUCTIVE PULMONARY DISEASE, U 06/23/2019 STIVEN DOJAKEBRANDEN M Ot J44. 9 CHRONIC OBSTRUCTIVE PULMONARY DISEASE, U 06/28/2019 STIVEN DOJAKEBRANDEN M Ot J44. 9 CHRONIC OBSTRUCTIVE PULMONARY DISEASE, U 06/28/2019 STIVEN DOJAKEBRANDEN M Ot J44. 9 CHRONIC OBSTRUCTIVE PULMONARY DISEASE, U 06/30/2019 STIVEN DOJAKEBRANDEN M Ot J44. 9 CHRONIC OBSTRUCTIVE PULMONARY DISEASE, U 07/05/2019 STIVEN DOJAKEBRANDEN M Ot J44. 9 CHRONIC OBSTRUCTIVE PULMONARY DISEASE, U 07/07/2019 STIVEN DOJAKEBRANDEN M Ot J44. 9 CHRONIC OBSTRUCTIVE PULMONARY DISEASE, U 07/12/2019 STIVEN DOJAKEBRANDEN M Ot J44. 9 CHRONIC OBSTRUCTIVE PULMONARY DISEASE, U 07/14/2019 STIVEN DOJAKEBRANDEN M Ot J44. 9 CHRONIC OBSTRUCTIVE PULMONARY DISEASE, U 07/19/2019 STIVEN DOJAKEBRANDEN M Ot J44. 9 CHRONIC OBSTRUCTIVE PULMONARY DISEASE, U 08/07/2019 STIVEN DOJAKEBRANDEN M Ot J44. 9 CHRONIC OBSTRUCTIVE PULMONARY DISEASE, U 08/11/2019 BRANDEN SALEEM DO Ot J44. 9 CHRONIC OBSTRUCTIVE PULMONARY DISEASE, U 08/11/2019 BRANDEN SALEEM DO Ot J44. 9 CHRONIC OBSTRUCTIVE PULMONARY DISEASE, U Procedures There is no data. Results Test Result Range Complete blood count (CBC) with automate d white blood cell (WBC) differential - 04/13/19 18:46 Blood leukocytes automated count (number/volume) 7.2 10*3/uL 4.3-11.0 Blood erythrocytes automated count (number/volume) 4.08 10*6/uL 4.35-5.85 Venous blood hemoglobin measurement (mass/volume) 13.3 g/dL 13.3-17.7 Blood hematocrit (volume fraction) 39 % 40-54 Automated erythrocyte mean corpuscular volume 96 [ foz_us] 80-99 Automated erythrocyte mean corpuscular h emoglobin (mass per erythrocyte) 33 pg 25-34 Automated erythrocyte mean corpuscular h emoglobin concentration measurement (mass/volume) 34 g/dL 32-36 Automated erythrocyte distribution width ratio 13. 6 % 10.0- 14.5 Automated blood platelet count (count/volume) 240 10*3/uL 130-400 Automated blood platelet mean volume measurement 9.3 [foz_us] 7.4-10.4 Automated blood neutrophils/100 leukocytes 72 % 42-75 Automated blood lymphocytes/100 leukocytes 15 % 12-44 Blood monocytes/100 leukocytes 13 % 0-12 Automated blood eosinophils/100 leukocytes 0 % 0-10 Automated blood basophils/100 leukocytes 0 % 0-10 Blood neutrophils automated count (number/volume) 5.2 10*3 1.8-7.8 Blood lymphocytes automated count (number/volume) 1.1 10*3 1.0-4.0 Blood monocytes automated count (number/volume) 0. 9 10*3 0.0-1.0 Automated eosinophil count 0.0 10*3/uL 0 .0-0.3 Automated blood basophil count (count/volume) 0.0 10*3/uL 0.0-0.1 Blood lactic acid measurement (moles/vol ume) - 04/13/19 18:46 Blood lactic acid measurement (moles/volume) 2.38 mmol/L 0.50-2.00 Comprehensive metabolic panel - 04/13/19 18:46 Serum or plasma sodium measurement (moles/volume) 133 mmol/L 135-145 Serum or plasma potassium measurement (moles/volume) 4.3 mmol/L 3.6-5.0 Serum or plasma chloride measurement (moles/volume) 93 mmol/L 98-107 Carbon dioxide 22 mmol/L 21-32 Serum or plasma anion gap determination (moles/volume) 18 mmol/L 5-14 Serum or plasma urea nitrogen measurement (mass/volume ) 15 mg/dL 7-18 Serum or plasma creatinine measurement (mass/volume) 1.01 mg/dL 0.60-1.30 Serum or plasma urea nitrogen/creatinine mass ratio 15 NRG Serum or plasma creatinine measurement w ith calculation of estimated glomerular filtration rate > NRG Serum or plasma glucose measurement (mass/volume) 127 mg/dL 70-105 Serum or plasma calcium measurement (mass/volume) 9.6 mg/dL 8.5-10.1 Serum or plasma total bilirubin measurement (mass/volu me) 0.3 mg/dL 0.1-1.0 Serum or plasma alkaline phosphatase osman surement (enzymatic activity/volume) 81 U/L 40-136 Serum or plasma aspartate aminotransfera se measurement (enzymatic activity/volume) 20 U/L 5-34 Serum or plasma alanine aminotransferase measurement (enzymatic activity/volume) 21 U/L 0-55 Serum or plasma protein measurement (mass/volume) 7.2 g/dL 6.4-8.2 Serum or plasma albumin measurement (mass/volume) 4.1 g/dL 3.2-4.5 CALCIUM CORRECTED 9.5 mg/dL 8.5-10.1 Magnesium - 04/13/19 18:46 Magnesium 1.9 mg/dL 1.8-2.4 TROPONIN T - 04/13/19 18:46 TROPONIN T 30 % <=15 PROBNP FS - 04/13/19 18:46 PROBNP FS 298.7 pg/mL <75.0 Bacterial blood culture - 04/13/19 18:46 Bacterial blood culture NG NRG Bacterial blood culture - 04/13/19 19:15 Bacterial blood culture NG NRG Serum or plasma lactate measurement (mol es/volume) - 04/13/19 19:40 Serum or plasma lactate measurement (moles/volume) 1.58 mmol/L 0.50-2.00 Complete blood count (CBC) with automate d white blood cell (WBC) differential - 04/15/19 05:05 Blood leukocytes automated count (number/volume) 8.5 10*3/uL 4.3-11.0 Blood erythrocytes automated count (number/volume) 4.20 10*6/uL 4.35-5.85 Venous blood hemoglobin measurement (mass/volume) 13.4 g/dL 13.3-17.7 Blood hematocrit (volume fraction) 39 % 40-54 Automated erythrocyte mean corpuscular volume 94 [ foz_us] 80-99 Automated erythrocyte mean corpuscular h emoglobin (mass per erythrocyte) 32 pg 25-34 Automated erythrocyte mean corpuscular h emoglobin concentration measurement (mass/volume) 34 g/dL 32-36 Automated erythrocyte distribution width ratio 14. 1 % 10.0- 14.5 Automated blood platelet count (count/volume) 246 10*3/uL 130-400 Automated blood platelet mean volume measurement 9.4 [foz_us] 7.4-10.4 Automated blood neutrophils/100 leukocytes 73 % 42-75 Automated blood lymphocytes/100 leukocytes 14 % 12-44 Blood monocytes/100 leukocytes 14 % 0-12 Automated blood eosinophils/100 leukocytes 0 % 0-10 Automated blood basophils/100 leukocytes 0 % 0-10 Blood neutrophils automated count (number/volume) 6.2 10*3 1.8-7.8 Blood lymphocytes automated count (number/volume) 1.2 10*3 1.0-4.0 Blood monocytes automated count (number/volume) 1. 2 10*3 0.0-1.0 Automated eosinophil count 0.0 10*3/uL 0 .0-0.3 Automated blood basophil count (count/volume) 0.0 10*3/uL 0.0-0.1 Comprehensive metabolic panel - 04/15/19 05:05 Serum or plasma sodium measurement (moles/volume) 133 mmol/L 135-145 Serum or plasma potassium measurement (moles/volume) 4.1 mmol/L 3.6-5.0 Serum or plasma chloride measurement (moles/volume) 98 mmol/L 98-107 Carbon dioxide 22 mmol/L 21-32 Serum or plasma anion gap determination (moles/volume) 13 mmol/L 5-14 Serum or plasma urea nitrogen measurement (mass/volume ) 17 mg/dL 7-18 Serum or plasma creatinine measurement (mass/volume) 0.83 mg/dL 0.60-1.30 Serum or plasma urea nitrogen/creatinine mass ratio 20 NRG Serum or plasma creatinine measurement w ith calculation of estimated glomerular filtration rate > NRG Serum or plasma glucose measurement (mass/volume) 104 mg/dL 70-105 Serum or plasma calcium measurement (mass/volume) 9.3 mg/dL 8.5-10.1 Serum or plasma total bilirubin measurement (mass/volu me) 0.2 mg/dL 0.1-1.0 Serum or plasma alkaline phosphatase osman surement (enzymatic activity/volume) 77 U/L 40-136 Serum or plasma aspartate aminotransfera se measurement (enzymatic activity/volume) 26 U/L 5-34 Serum or plasma alanine aminotransferase measurement (enzymatic activity/volume) 26 U/L 0-55 Serum or plasma protein measurement (mass/volume) 6.6 g/dL 6.4-8.2 Serum or plasma albumin measurement (mass/volume) 3.8 g/dL 3.2-4.5 CALCIUM CORRECTED 9.5 mg/dL 8.5-10.1 Arterial blood gas measurement - 9 07:58 Blood pCO2 42 mm[Hg] 35-45 Blood pO2 152 mm[Hg] 79-93 Arterial blood bicarbonate measurement (moles/volume) 27 mmol/L 23-27 Arterial blood base excess by calculation 3.1 mmol /L -2.5-2.5 Arterial blood oxygen saturation measurement 100 % 94-100 * Inhaled oxygen flow rate 40L 40% NRG Arterial blood pH measurement with patient temperature correction 7.43 7.37-7.43 Arterial blood carbon dioxide, total measurement (mole s/volume) 28.6 mmol/L 21.0-31.0 Body site LT RAD NRG Assessment of wrist artery patency prior to arterial p uncture YES-POS NRG Setting of ventilation mode NO NR G Measurement of body temperature 97.8 NRG Complete blood count (CBC) with automate d white blood cell (WBC) differential - 04/16/19 05:22 Blood leukocytes automated count (number/volume) 7.5 10*3/uL 4.3-11.0 Blood erythrocytes automated count (number/volume) 4.13 10*6/uL 4.35-5.85 Venous blood hemoglobin measurement (mass/volume) 13.4 g/dL 13.3-17.7 Blood hematocrit (volume fraction) 39 % 40-54 Automated erythrocyte mean corpuscular volume 95 [ foz_us] 80-99 Automated erythrocyte mean corpuscular h emoglobin (mass per erythrocyte) 32 pg 25-34 Automated erythrocyte mean corpuscular h emoglobin concentration measurement (mass/volume) 34 g/dL 32-36 Automated erythrocyte distribution width ratio 13. 7 % 10.0- 14.5 Automated blood platelet count (count/volume) 244 10*3/uL 130-400 Automated blood platelet mean volume measurement 9.6 [foz_us] 7.4-10.4 Automated blood neutrophils/100 leukocytes 92 % 42-75 Automated blood lymphocytes/100 leukocytes 6 % 12-44 Blood monocytes/100 leukocytes 3 % 0-12 Automated blood eosinophils/100 leukocytes 0 % 0-10 Automated blood basophils/100 leukocytes 0 % 0-10 Blood neutrophils automated count (number/volume) 6.9 10*3 1.8-7.8 Blood lymphocytes automated count (number/volume) 0.4 10*3 1.0-4.0 Blood monocytes automated count (number/volume) 0. 2 10*3 0.0-1.0 Automated eosinophil count 0.0 10*3/uL 0 .0-0.3 Automated blood basophil count (count/volume) 0.0 10*3/uL 0.0-0.1 Comprehensive metabolic panel - 04/16/19 05:22 Serum or plasma sodium measurement (moles/volume) 131 mmol/L 135-145 Serum or plasma potassium measurement (moles/volume) 4.7 mmol/L 3.6-5.0 Serum or plasma chloride measurement (moles/volume) 99 mmol/L 98-107 Carbon dioxide 20 mmol/L 21-32 Serum or plasma anion gap determination (moles/volume) 12 mmol/L 5-14 Serum or plasma urea nitrogen measurement (mass/volume ) 19 mg/dL 7-18 Serum or plasma creatinine measurement (mass/volume) 0.83 mg/dL 0.60-1.30 Serum or plasma urea nitrogen/creatinine mass ratio 23 NRG Serum or plasma creatinine measurement w ith calculation of estimated glomerular filtration rate > NRG Serum or plasma glucose measurement (mass/volume) 135 mg/dL 70-105 Serum or plasma calcium measurement (mass/volume) 9.8 mg/dL 8.5-10.1 Serum or plasma total bilirubin measurement (mass/volu me) 0.2 mg/dL 0.1-1.0 Serum or plasma alkaline phosphatase osman surement (enzymatic activity/volume) 70 U/L 40-136 Serum or plasma aspartate aminotransfera se measurement (enzymatic activity/volume) 24 U/L 5-34 Serum or plasma alanine aminotransferase measurement (enzymatic activity/volume) 29 U/L 0-55 Serum or plasma protein measurement (mass/volume) 6.6 g/dL 6.4-8.2 Serum or plasma albumin measurement (mass/volume) 3.7 g/dL 3.2-4.5 CALCIUM CORRECTED 10.0 mg/dL 8.5-10.1 Serum or plasma phosphate measurement (m ass/volume) - 04/16/19 05:22 Serum or plasma phosphate measurement (mass/volume) 3.7 mg/dL 2.3-4.7 Magnesium - 04/16/19 05:22 Magnesium 2.0 mg/dL 1.8-2.4 Blood manual differential performed dete ction - 04/16/19 05:22 Blood monocytes/100 leukocytes 6 % NRG Manual blood segmented neutrophils/100 leukocytes 90 % NRG Manual blood lymphocytes/100 leukocytes 3 % NRG Blood lymphocytes variant/100 leukocytes 1 % NRG Complete blood count (CBC) with automate d white blood cell (WBC) differential - 04/16/19 06:35 Blood leukocytes automated count (number/volume) 7.2 10*3/uL 4.3-11.0 Blood erythrocytes automated count (number/volume) 4.10 10*6/uL 4.35-5.85 Venous blood hemoglobin measurement (mass/volume) 13.3 g/dL 13.3-17.7 Blood hematocrit (volume fraction) 39 % 40-54 Automated erythrocyte mean corpuscular volume 95 [ foz_us] 80-99 Automated erythrocyte mean corpuscular h emoglobin (mass per erythrocyte) 32 pg 25-34 Automated erythrocyte mean corpuscular h emoglobin concentration measurement (mass/volume) 34 g/dL 32-36 Automated erythrocyte distribution width ratio 13. 6 % 10.0- 14.5 Automated blood platelet count (count/volume) 241 10*3/uL 130-400 Automated blood platelet mean volume measurement 9.7 [foz_us] 7.4-10.4 Automated blood neutrophils/100 leukocytes 88 % 42-75 Automated blood lymphocytes/100 leukocytes 8 % 12-44 Blood monocytes/100 leukocytes 4 % 0-12 Automated blood eosinophils/100 leukocytes 0 % 0-10 Automated blood basophils/100 leukocytes 0 % 0-10 Blood neutrophils automated count (number/volume) 6.4 10*3 1.8-7.8 Blood lymphocytes automated count (number/volume) 0.6 10*3 1.0-4.0 Blood monocytes automated count (number/volume) 0. 3 10*3 0.0-1.0 Automated eosinophil count 0.0 10*3/uL 0 .0-0.3 Automated blood basophil count (count/volume) 0.0 10*3/uL 0.0-0.1 Serum or plasma lithium measurement (mol es/volume) - 04/16/19 06:35 BNP level 71.2 pg/mL <100.0 Complete blood count (CBC) with automate d white blood cell (WBC) differential - 04/17/19 04:59 Blood leukocytes automated count (number/volume) 13.6 10*3/uL 4.3-11.0 Blood erythrocytes automated count (number/volume) 4.25 10*6/uL 4.35-5.85 Venous blood hemoglobin measurement (mass/volume) 13.6 g/dL 13.3-17.7 Blood hematocrit (volume fraction) 40 % 40-54 Automated erythrocyte mean corpuscular volume 94 [ foz_us] 80-99 Automated erythrocyte mean corpuscular h emoglobin (mass per erythrocyte) 32 pg 25-34 Automated erythrocyte mean corpuscular h emoglobin concentration measurement (mass/volume) 34 g/dL 32-36 Automated erythrocyte distribution width ratio 14. 0 % 10.0- 14.5 Automated blood platelet count (count/volume) 313 10*3/uL 130-400 Automated blood platelet mean volume measurement 9.5 [foz_us] 7.4-10.4 Automated blood neutrophils/100 leukocytes 90 % 42-75 Automated blood lymphocytes/100 leukocytes 5 % 12-44 Blood monocytes/100 leukocytes 5 % 0-12 Automated blood eosinophils/100 leukocytes 0 % 0-10 Automated blood basophils/100 leukocytes 0 % 0-10 Blood neutrophils automated count (number/volume) 12.2 10*3 1.8-7.8 Blood lymphocytes automated count (number/volume) 0.7 10*3 1.0-4.0 Blood monocytes automated count (number/volume) 0. 6 10*3 0.0-1.0 Automated eosinophil count 0.0 10*3/uL 0 .0-0.3 Automated blood basophil count (count/volume) 0.0 10*3/uL 0.0-0.1 Whole blood basic metabolic panel - 03/30 08/18 04:59 Serum or plasma sodium measurement (moles/volume) 136 mmol/L 135-145 Serum or plasma potassium measurement (moles/volume) 4.8 mmol/L 3.6-5.0 Serum or plasma chloride measurement (moles/volume) 100 mmol/L 98-107 Carbon dioxide 22 mmol/L 21-32 Serum or plasma anion gap determination (moles/volume) 14 mmol/L 5-14 Serum or plasma urea nitrogen measurement (mass/volume ) 22 mg/dL 7-18 Serum or plasma creatinine measurement (mass/volume) 0.86 mg/dL 0.60-1.30 Serum or plasma urea nitrogen/creatinine mass ratio 26 NRG Serum or plasma creatinine measurement w ith calculation of estimated glomerular filtration rate > NRG Serum or plasma glucose measurement (mass/volume) 140 mg/dL 70-105 Serum or plasma calcium measurement (mass/volume) 10.6 mg/dL 8.5-10.1 Serum or plasma phosphate measurement (m ass/volume) - 04/17/19 04:59 Serum or plasma phosphate measurement (mass/volume) 3.5 mg/dL 2.3-4.7 Magnesium - 04/17/19 04:59 Magnesium 2.0 mg/dL 1.8-2.4 Complete blood count (CBC) with automate d white blood cell (WBC) differential - 04/18/19 05:09 Blood leukocytes automated count (number/volume) 15.5 10*3/uL 4.3-11.0 Blood erythrocytes automated count (number/volume) 4.12 10*6/uL 4.35-5.85 Venous blood hemoglobin measurement (mass/volume) 13.2 g/dL 13.3-17.7 Blood hematocrit (volume fraction) 39 % 40-54 Automated erythrocyte mean corpuscular volume 95 [ foz_us] 80-99 Automated erythrocyte mean corpuscular h emoglobin (mass per erythrocyte) 32 pg 25-34 Automated erythrocyte mean corpuscular h emoglobin concentration measurement (mass/volume) 34 g/dL 32-36 Automated erythrocyte distribution width ratio 13. 8 % 10.0- 14.5 Automated blood platelet count (count/volume) 314 10*3/uL 130-400 Automated blood platelet mean volume measurement 9.4 [foz_us] 7.4-10.4 Automated blood neutrophils/100 leukocytes 92 % 42-75 Automated blood lymphocytes/100 leukocytes 4 % 12-44 Blood monocytes/100 leukocytes 4 % 0-12 Automated blood eosinophils/100 leukocytes 0 % 0-10 Automated blood basophils/100 leukocytes 0 % 0-10 Blood neutrophils automated count (number/volume) 14.2 10*3 1.8-7.8 Blood lymphocytes automated count (number/volume) 0.6 10*3 1.0-4.0 Blood monocytes automated count (number/volume) 0. 7 10*3 0.0-1.0 Automated eosinophil count 0.0 10*3/uL 0 .0-0.3 Automated blood basophil count (count/volume) 0.0 10*3/uL 0.0-0.1 Whole blood basic metabolic panel - 03/31 05:09 Serum or plasma sodium measurement (moles/volume) 134 mmol/L 135-145 Serum or plasma potassium measurement (moles/volume) 4.6 mmol/L 3.6-5.0 Serum or plasma chloride measurement (moles/volume) 100 mmol/L 98-107 Carbon dioxide 21 mmol/L 21-32 Serum or plasma anion gap determination (moles/volume) 13 mmol/L 5-14 Serum or plasma urea nitrogen measurement (mass/volume ) 26 mg/dL 7-18 Serum or plasma creatinine measurement (mass/volume) 0.90 mg/dL 0.60-1.30 Serum or plasma urea nitrogen/creatinine mass ratio 29 NRG Serum or plasma creatinine measurement w ith calculation of estimated glomerular filtration rate > NRG Serum or plasma glucose measurement (mass/volume) 130 mg/dL 70-105 Serum or plasma calcium measurement (mass/volume) 9.6 mg/dL 8.5-10.1 Serum or plasma phosphate measurement (m ass/volume) - 04/18/19 05:09 Serum or plasma phosphate measurement (mass/volume) 3.5 mg/dL 2.3-4.7 Magnesium - 04/18/19 05:09 Magnesium 2.2 mg/dL 1.8-2.4 Blood manual differential performed dete ction - 04/18/19 05:09 Blood monocytes/100 leukocytes 3 % NRG Manual blood segmented neutrophils/100 leukocytes 91 % NRG Manual blood lymphocytes/100 leukocytes 6 % NRG Complete blood count (CBC) with automate d white blood cell (WBC) differential - 04/19/19 05:20 Blood leukocytes automated count (number/volume) 12.1 10*3/uL 4.3-11.0 Blood erythrocytes automated count (number/volume) 4.38 10*6/uL 4.35-5.85 Venous blood hemoglobin measurement (mass/volume) 13.9 g/dL 13.3-17.7 Blood hematocrit (volume fraction) 42 % 40-54 Automated erythrocyte mean corpuscular volume 95 [ foz_us] 80-99 Automated erythrocyte mean corpuscular h emoglobin (mass per erythrocyte) 32 pg 25-34 Automated erythrocyte mean corpuscular h emoglobin concentration measurement (mass/volume) 33 g/dL 32-36 Automated erythrocyte distribution width ratio 14. 2 % 10.0- 14.5 Automated blood platelet count (count/volume) 359 10*3/uL 130-400 Automated blood platelet mean volume measurement 9.2 [foz_us] 7.4-10.4 Automated blood neutrophils/100 leukocytes 91 % 42-75 Automated blood lymphocytes/100 leukocytes 4 % 12-44 Blood monocytes/100 leukocytes 5 % 0-12 Automated blood eosinophils/100 leukocytes 0 % 0-10 Automated blood basophils/100 leukocytes 0 % 0-10 Blood neutrophils automated count (number/volume) 11.0 10*3 1.8-7.8 Blood lymphocytes automated count (number/volume) 0.5 10*3 1.0-4.0 Blood monocytes automated count (number/volume) 0. 5 10*3 0.0-1.0 Automated eosinophil count 0.0 10*3/uL 0 .0-0.3 Automated blood basophil count (count/volume) 0.0 10*3/uL 0.0-0.1 Whole blood basic metabolic panel - 03/31 12/18 05:20 Serum or plasma sodium measurement (moles/volume) 138 mmol/L 135-145 Serum or plasma potassium measurement (moles/volume) 5.2 mmol/L 3.6-5.0 Serum or plasma chloride measurement (moles/volume) 101 mmol/L 98-107 Carbon dioxide 25 mmol/L 21-32 Serum or plasma anion gap determination (moles/volume) 12 mmol/L 5-14 Serum or plasma urea nitrogen measurement (mass/volume ) 30 mg/dL 7-18 Serum or plasma creatinine measurement (mass/volume) 0.96 mg/dL 0.60-1.30 Serum or plasma urea nitrogen/creatinine mass ratio 31 NRG Serum or plasma creatinine measurement w ith calculation of estimated glomerular filtration rate > NRG Serum or plasma glucose measurement (mass/volume) 130 mg/dL 70-105 Serum or plasma calcium measurement (mass/volume) 10.0 mg/dL 8.5-10.1 Serum or plasma phosphate measurement (m ass/volume) - 04/19/19 05:20 Serum or plasma phosphate measurement (mass/volume) 3.5 mg/dL 2.3-4.7 Magnesium - 04/19/19 05:20 Magnesium 2.3 mg/dL 1.8-2.4 Complete blood count (CBC) with automate d white blood cell (WBC) differential - 04/20/19 05:33 Blood leukocytes automated count (number/volume) 11.0 10*3/uL 4.3-11.0 Blood erythrocytes automated count (number/volume) 4.59 10*6/uL 4.35-5.85 Venous blood hemoglobin measurement (mass/volume) 14.7 g/dL 13.3-17.7 Blood hematocrit (volume fraction) 44 % 40-54 Automated erythrocyte mean corpuscular volume 95 [ foz_us] 80-99 Automated erythrocyte mean corpuscular h emoglobin (mass per erythrocyte) 32 pg 25-34 Automated erythrocyte mean corpuscular h emoglobin concentration measurement (mass/volume) 34 g/dL 32-36 Automated erythrocyte distribution width ratio 14. 0 % 10.0- 14.5 Automated blood platelet count (count/volume) 345 10*3/uL 130-400 Automated blood platelet mean volume measurement 9.5 [foz_us] 7.4-10.4 Automated blood neutrophils/100 leukocytes 89 % 42-75 Automated blood lymphocytes/100 leukocytes 6 % 12-44 Blood monocytes/100 leukocytes 5 % 0-12 Automated blood eosinophils/100 leukocytes 0 % 0-10 Automated blood basophils/100 leukocytes 0 % 0-10 Blood neutrophils automated count (number/volume) 9.7 10*3 1.8-7.8 Blood lymphocytes automated count (number/volume) 0.7 10*3 1.0-4.0 Blood monocytes automated count (number/volume) 0. 6 10*3 0.0-1.0 Automated eosinophil count 0.0 10*3/uL 0 .0-0.3 Automated blood basophil count (count/volume) 0.0 10*3/uL 0.0-0.1 Whole blood basic metabolic panel - 03/31 01/18 05:33 Serum or plasma sodium measurement (moles/volume) 137 mmol/L 135-145 Serum or plasma potassium measurement (moles/volume) 5.3 mmol/L 3.6-5.0 Serum or plasma chloride measurement (moles/volume) 100 mmol/L 98-107 Carbon dioxide 23 mmol/L 21-32 Serum or plasma anion gap determination (moles/volume) 14 mmol/L 5-14 Serum or plasma urea nitrogen measurement (mass/volume ) 36 mg/dL 7-18 Serum or plasma creatinine measurement (mass/volume) 1.06 mg/dL 0.60-1.30 Serum or plasma urea nitrogen/creatinine mass ratio 34 NRG Serum or plasma creatinine measurement w ith calculation of estimated glomerular filtration rate > NRG Serum or plasma glucose measurement (mass/volume) 124 mg/dL 70-105 Serum or plasma calcium measurement (mass/volume) 10.1 mg/dL 8.5-10.1 Serum or plasma phosphate measurement (m ass/volume) - 04/20/19 05:33 Serum or plasma phosphate measurement (mass/volume) 4.1 mg/dL 2.3-4.7 Magnesium - 04/20/19 05:33 Magnesium 2.3 mg/dL 1.8-2.4 LIPID PANEL - 06/06/19 10:20 CHOLESTEROL, TOTAL 173 mg/dL <200 HDL CHOLESTEROL 74 mg/dL >40 TRIGLYCERIDES 83 mg/dL <150 LDL-CHOLESTEROL 82 mg/dL (calc) NRG CHOL/HDLC RATIO 2.3 (calc) <5.0 NON HDL CHOLESTEROL 99 mg/dL (calc) <130 CMP - 06/06/19 10:20 GLUCOSE 93 mg/dL 65-99 UREA NITROGEN (BUN) 12 mg/dL 7-25 CREATININE 0.92 mg/dL 0.70-1.18 eGFR NON-AFR. MALAGASY 79 mL/min/1.73m2 > OR = 60 eGFR 92 mL/min/1.73m2 > OR = 60 BUN/CREATININE RATIO NOT APPLICABLE (calc) 6-22 SODIUM 134 mmol/L 135-146 POTASSIUM 4.9 mmol/L 3.5-5.3 CHLORIDE 100 mmol/L 98-110 CARBON DIOXIDE 25 mmol/L 20-32 CALCIUM 9.3 mg/dL 8.6-10.3 PROTEIN, TOTAL 6.2 g/dL 6.1-8.1 ALBUMIN 3.8 g/dL 3.6-5.1 GLOBULIN 2.4 g/dL (calc) 1.9-3.7 ALBUMIN/GLOBULIN RATIO 1.6 (calc) 1.0-2. 5 BILIRUBIN, TOTAL 0.4 mg/dL 0.2-1.2 ALKALINE PHOSPHATASE 89 U/L 40-115 AST 19 U/L 10-35 ALT 14 U/L 9-46 CBC - 06/06/19 10:20 WHITE BLOOD CELL COUNT 7.4 Thousand/uL 3 .8-10.8 RED BLOOD CELL COUNT 4.11 Million/uL 4.2 0-5.80 HEMOGLOBIN 13.0 g/dL 13.2-17.1 HEMATOCRIT 38.7 % 38.5-50.0 MCV 94.2 fL 80.0-100.0 MCH 31.6 pg 27.0-33.0 MCHC 33.6 g/dL 32.0-36.0 RDW 14.0 % 11.0-15.0 PLATELET COUNT 309 Thousand/uL 140-400 MPV 9.6 fL 7.5-12.5 ABSOLUTE NEUTROPHILS 4751 cells/uL 1500- 7800 ABSOLUTE LYMPHOCYTES 1502 cells/uL 850-3 900 ABSOLUTE MONOCYTES 807 cells/uL 200-950 ABSOLUTE EOSINOPHILS 252 cells/uL 15-500 ABSOLUTE BASOPHILS 89 cells/uL 0-200 NEUTROPHILS 64.2 % NRG LYMPHOCYTES 20.3 % NRG MONOCYTES 10.9 % NRG EOSINOPHILS 3.4 % NRG BASOPHILS 1.2 % NRG CBC w/MANUAL DIFF - 10/14/19 10:55 WHITE BLOOD CELL COUNT 7.2 Thousand/uL 3 .8-10.8 RED BLOOD CELL COUNT 4.11 Million/uL 4.2 0-5.80 HEMOGLOBIN 13.2 g/dL 13.2-17.1 HEMATOCRIT 38.8 % 38.5-50.0 MCV 94.4 fL 80.0-100.0 MCH 32.1 pg 27.0-33.0 MCHC 34.0 g/dL 32.0-36.0 RDW 13.0 % 11.0-15.0 PLATELET COUNT 313 Thousand/uL 140-400 MPV 10.3 fL 7.5-12.5 ABSOLUTE NEUTROPHILS 4824 cells/uL 1500- 7800 ABSOLUTE MONOCYTES 374 cells/uL 200-950 ABSOLUTE EOSINOPHILS 72 cells/uL 15-500 ABSOLUTE BASOPHILS 72 cells/uL 0-200 NEUTROPHILS 67.0 % NRG LYMPHOCYTES 25.8 % NRG MONOCYTES 5.2 % NRG EOSINOPHILS 1.0 % NRG BASOPHILS 1.0 % NRG ABSOLUTE LYMPHOCYTES 1858 cells/uL 850-3 900 PLATELET ESTIMATION ADEQUATE ADEQUATE COMMENT(S) NRG VITAMIN D, 25-H - 10/14/19 10:55 VITAMIN D,25-OH,TOTAL,IA 33 ng/mL 30-10 0 Encounters ACCT No. Visit Date/Time Discharge Status Pt. Type Provider Facility Loc./Unit Complaint [id number] 10/14/2019 10:15:00 10/14/2019 23:59: 59 CLS Outpatient [facility] [id number] 10/14/2019 10:15:00 Document Registration [id number] 06/06/2019 10:15:00 Document Registration [id number] 02/08/2020 21:25:00 020 23:07:00 DIS Emergency HOME VILLA, SHANICE Duong [facility] ER FS EAR BIOPSY SITE BROKEN OPEN [id number] 08/08/2019 00:13:00 23:59:59 CLS Preadmit BRANDEN SALEEM DO [facility] PULM COPD [id number] 05/09/2019 12:44:00 019 00:01:00 DIS Outpatient BRANDEN SALEEM DO [facility] PULM COPD [id number] 05/02/2019 10:25:00 23:59:59 CLS Outpatient BRANDEN SALEEM DO [facility] RT COPD [id number] 04/15/2019 09:30:00 12:15:00 DIS Inpatient CHAO ADAME MD [facility] 4TH COPD EXACERBATION [id number] 01/07/2019 10:24:00 23:59:59 CLS Preadmit MARINA VILLA, AUBREY Powers [facility] RAD LUNG NODULE [id number] 10/18/2015 14:26:00 23:59:59 CLS Outpatient [place] SHARIF MD [facility] ONC [id number] 01/16/2015 10:44:00 015 23:59:59 CLS Outpatient [place] SHARIF MD [facility] ONC [id number] 07/10/2014 09:47:00 014 23:59:59 CLS Outpatient [place] SHARIF MD [facility] ONC [id number] 02/27/2014 16:02:00 014 00:01:00 DIS Outpatient [place] SHARIF MD [facility] ONC [id number] 11/15/2013 08:47:00 014 00:01:00 DIS Outpatient [place] SHARIF MD [facility] ONC [id number] 01/27/2014 06:03:00 014 23:59:59 CLS Outpatient ARSENIO DURAN MD [facility] SDC PROSTATE CANCER [id number] 01/20/2014 09:51:00 014 23:59:59 CLS Outpatient ARSENIO DURAN MD [facility] PREOP PROSTATE CANCER
== END 2020-02-08 23:07 | disposition home or self-care (01) ==
LOC: EDUNIT# 21:24 → ER FS 21:25
DX: H61.101 Unspecified noninfective disorders of pinna, right ear (principal); L76.22 Postprocedural hemorrhage of skin and subcutaneous tissue following other procedure; J44.9 Chronic obstructive pulmonary disease, unspecified; I10 Essential (primary) hypertension; E78.00 Pure hypercholesterolemia, unspecified; I25.10 Atherosclerotic heart disease of native coronary artery without angina pectoris; Z85.46 Personal history of malignant neoplasm of prostate; Z79.82 Long term (current) use of aspirin; Z77.22 Contact with and (suspected) exposure to environmental tobacco smoke (acute) (chronic); Z95.1 Presence of aortocoronary bypass graft
CPT/HCPCS: 99282

== ENCOUNTER → 2021-03-29 | Outpatient (CLI) | payer MEDICARE, OTHER ==
[~2021-03-29] MED LIST changes: -ALEN70TA5 PO; +ALEN70TA80 PO; +ASPI-1238 PO; -ASPI-983 PO; +LISI10TA25 PO; -MONT10TA26 PO; +MONT10TA32 PO; -NICO-588 TD; +NICO-685 TD
--- NOTE | 2021-03-29 13:30 | Diagnostic Imaging Report ---
HISTORY: Abdominal pain and back pain. Hematuria. COMPARISON: None FINDINGS: Frontal view of the abdomen demonstrates an 11 mm calcification at the inferior pole of the right kidney as seen on the concurrent CT of the abdomen. The 3 mm hyperdensities representing calculi are also seen in the left kidney. No distended loops of bowel are seen and there is no large collection of free air. There are severe degenerative changes in the lumbar spine at L1-L2, L2-L3, L4-L5 and L5-S1. There is moderate left convex curvature of the lumbar spine. Bilateral sacroiliac joints are patent. Radiotherapy seeds are noted at the prostate. There is a linear hyperdensity in the right liver. IMPRESSION: 1. Nephrolithiasis. No calculi are seen along the expected course of the ureters. 2. Severe degenerative changes in the lumbar spine. Dictated by: Dictated on workstation # [id number]
--- NOTE | 2021-03-29 13:52 | Diagnostic Imaging Report ---
PROCEDURE: CT abdomen and pelvis without contrast. TECHNIQUE: Multiple contiguous axial images were obtained through the abdomen and pelvis without the use of intravenous contrast. Auto Exposure Controls were utilized during the CT exam to meet ALARA standards for radiation dose reduction. INDICATION: Back pain. No prior studies are available for comparison. Imaging through lung bases demonstrate some infiltrate or scarring in the right lower lobe posteriorly. The liver and gallbladder are unremarkable. No biliary ductal dilatation is seen. Pancreas and spleen are unremarkable. No adrenal mass is detected. There are nonobstructing calculi in both kidneys, largest in the lower pole right kidney measuring 7 mm x 5 mm. No definite ureteral calculi or hydronephrosis is detected. There is an infrarenal abdominal aortic aneurysm measuring 4 cm. No definite leakage or rupture is seen. Small and large bowel loops are normal in caliber. There is no obstruction. No free fluid or fluid collection is seen. There is some questionable wall thickening of the urinary bladder without evidence of discrete mass. Radiation seed implants within the prostate gland are noted. IMPRESSION: 1. Right basilar infiltrate or scarring. 2. Bilateral nonobstructing nephrolithiasis. No definite ureteral calculi or hydronephrosis is seen. 3. Infrarenal abdominal aortic aneurysm. 4. Bladder wall thickening. Correlation with cystoscopy would be useful. Dictated by: Dictated on workstation # [id number]
== END ==
LOC: RAD FS 12:48
PROVIDERS: ATTEND Urology
DX: N20.0 Calculus of kidney (principal); N32.89 Other specified disorders of bladder; I71.4 Abdominal aortic aneurysm, without rupture; M47.816 Spondylosis without myelopathy or radiculopathy, lumbar region
CPT/HCPCS: 74018; 74176

== ENCOUNTER → 2022-04-07 | Outpatient (CLI) | payer MEDICARE, OTHER ==
[~2022-04-07] MED LIST changes: -LEVO500T80 PO; +LEVO500T81 PO; +MONT-40 PO; -MONT10TA32 PO
--- NOTE | 2022-04-07 18:09 | Diagnostic Imaging Report ---
PROCEDURE: CT abdomen and pelvis without contrast. TECHNIQUE: Multiple contiguous axial images were obtained through the abdomen and pelvis without the use of intravenous contrast. Auto Exposure Controls were utilized during the CT exam to meet ALARA standards for radiation dose reduction. INDICATION: 81-year-old male with history of prostate cancer presents with difficulty walking. COMPARISONS: 03/29/2021. 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 There are chronic-appearing infiltrates in the right costophrenic recess which may be a sequela of aspiration. No discrete nodule is seen. There are bronchiectatic changes, more prominent in the right lower lobe. Cardiac contour is normal. Coronary calcifications are seen. The liver shows uniform attenuation. Gallbladder shows either biliary sludge or granular calcifications near the fundus. There is no wall thickening or pericholecystic fluid. Spleen and GE junction are normal. Stomach and duodenal sweep are grossly unremarkable. Pancreas shows atrophy but sharp margins. Adrenals are normal. Kidneys appear normal in size, composition and contour. There are multiple vascular calcifications in the left renal artery and segmental branches. On the right, there is nonobstructing calculi in the inferior pole of the right kidney measuring 8 mm in maximum dimension. There is no hydronephrosis or hydroureter. Both ureters are seen intermittently through their course and appear unremarkable. Bladder is nondistended. Bladder wall is prominent and is felt to be due to nondistention. Nonopacified loops of small bowel are grossly unremarkable. Large bowel contains fecal material and gas. There is sigmoid diverticulosis but no definite evidence of acute diverticulitis. There are extensive calcifications throughout the aortic, iliac and femoral arteries. There is also an infrarenal aneurysm measuring approximately 4 cm in the AP dimension. This is unchanged. Extensive calcific atherosclerosis extends to the iliac and femoral arteries. Brachytherapy seeds are seen within the prostate. Bone windows show severe degenerative changes in the lumbosacral spine but no definite lytic or blastic changes present. IMPRESSION: 1. Sigmoid diverticulosis but no definite evidence of acute diverticulitis. 2. There is fecal colon with a moderate amount of fecal load in the proximal colon. 3. There are chronic appearing infiltrates in the right costophrenic recess. This is felt to be due to aspiration. There is bronchiectatic changes in both lower lobes, right worse than left. 4. Infrarenal abdominal aortic aneurysm measuring 4 cm in maximum diameter is unchanged. There is extensive calcific atherosclerosis extending to the iliac and femoral arteries. 4. Nondistended bladder with bladder wall prominence. 5. Severe degenerative changes of the lumbosacral spine but no definite lytic or blastic changes present. 6. Additional nonemergent findings, as described above. Dictated by: Dictated on workstation # [id number]
== END ==
LOC: CARD 12:00
PROVIDERS: ATTEND Urology
DX: C61 Malignant neoplasm of prostate (principal); K57.30 Diverticulosis of large intestine without perforation or abscess without bleeding; J47.9 Bronchiectasis, uncomplicated; R91.8 Other nonspecific abnormal finding of lung field; I71.4 Abdominal aortic aneurysm, without rupture; I70.298 Other atherosclerosis of native arteries of extremities, other extremity; M47.817 Spondylosis without myelopathy or radiculopathy, lumbosacral region; J43.9 Emphysema, unspecified; K82.9 Disease of gallbladder, unspecified; K86.89 Other specified diseases of pancreas; I70.1 Atherosclerosis of renal artery; N20.0 Calculus of kidney; I72.2 Aneurysm of renal artery
CPT/HCPCS: 74176

== ENCOUNTER 2022-06-09 13:24 | Emergency (ER) | payer MEDICARE, OTHER ==
[~2022-06-09] VITALS: Ht 167 cm; Wt 63.4 kg
--- NOTE | 2022-06-09 13:31 | ED Fall/Injury ---
General Stated Complaint: FALL Source: patient Exam Limitations: no limitations History of Present Illness Date Seen by Provider: Jun 09, 2022 Time Seen by Provider: 13:25 Initial Comments 81yoM with PMH of COPD with chronic respiratory failure on home O2 coming in after he fell backwards into a chair, and slid his arm against the wood causing a skin tear to his left arm. This occurred last night. He did not hit his head or pass out. Denies any headache, vision changes, chest pain, SOB, abd pain, n/v/d, new weakness or numbness, or any other concerns. He says his tetanus is up-to-date within the past 5 years. Allergies and Home Medications Allergies Coded Allergies: No Known Drug Allergies (Unverified , 04/13/19) Patient Home Medication List Home Medication List Reviewed: Yes Alendronate Sodium (Alendronate Sodium) 70 Mg Tablet, 70 MG PO Mo, (Reported) Entered as Reported by: BARTOLOME COUCH on 04/14/19 09 Aspirin (Aspirin EC) 81 Mg Tablet.dr, 81 MG PO HS, (Reported) Entered as Reported by: BARTOLOME COUCH on 04/14/19 09 Cefdinir (Cefdinir) 300 Mg Capsule, 300 MG PO BID Prescribed by: JAYESH GOVEA on 04/19/19 1013 Docusate Sodium (Docusate Sodium) 100 Mg Capsule, 200 MG PO BID, (Reported) Entered as Reported by: BARTOLOME COUCH on 04/14/19943 Fish Oil/Dha/Epa (Fish Oil 1,200 mg Fish Oil) 1 Each Capsule, 2,400 MG PO BID, (Reported) Entered as Reported by: BARTOLOME COUCH on 04/14/19 09 Fluticasone Propionate (Fluticasone Propionate) 16 Gm [place].susp, 2 SPRAYS NS DAILY, (Reported) Entered as Reported by: BARTOLOME COUCH on 04/14/19 09 Fluticasone/Vilanterol (Breo Ellipta 200-25 Mcg INH) 1 Each Blst.w.dev, 1 PUFF IH HS, (Reported) Entered as Reported by: BARTOLOME COUCH on 04/14/19 09 Furosemide (Furosemide) 20 Mg Tablet, 40 MG PO MoWeFr, (Reported) Entered as Reported by: BARTOLOME COUCH on 04/14/19943 Guaifenesin (Mucinex) 600 Mg Tab.er.12h, 600 MG PO BID Prescribed by: JAYESH GOVEA on 04/19/19 101 Guaifenesin/Dextromethorphan (Mucinex Dm ER 600-30 mg Tablet) 1 Each Tab.er.12h, 1 TAB PO Q12H, (Reported) Entered as Reported by: BARTOLOME COUCH on 04/14/19943 Hydrocodone Bit/Acetaminophen (HYDROcodone/APAP 7.5/325 TAB) 1 Each Tablet, 1 TAB PO Q6H PRN for PAIN-MODERATE, (Reported) Entered as Reported by: BARTOLOME COUCH on 04/14/19916 Ipratropium/Albuterol Sulfate (Iprat-Albut 0.5-3(2.5) mg/3 ml) 3 Ml Ampul.neb, 3 ML IH Q4H PRN for SHORTNESS OF BREATH, (Reported) Entered as Reported by: BARTOLOME COUCH on 04/14/19943 Lisinopril (Lisinopril) 10 Mg Tablet, 10 MG PO DAILY, (Reported) Entered as Reported by: BARTOLOME COUCH on 04/14/19916 Loratadine/Pseudoephedrine (Claritin-D 24 Hour Tablet) 1 Each Tab.er.24h, 1 TAB PO DAILY, (Reported) Entered as Reported by: BARTOLOME COUCH on 04/14/19943 Lorazepam (Lorazepam) 0.5 Mg Tablet, 0.5 MG PO Q8H PRN for ANXIETY Prescribed by: JAYESH GOVEA on 04/20/19 1102 Magnesium Oxide (Magnesium) 400 Mg Capsule, 400 MG PO HS, (Reported) Entered as Reported by: BARTOLOME COUCH on 04/14/19943 Montelukast Sodium (Montelukast Sodium) 10 Mg Tablet, 10 MG PO HS Prescribed by: JAYESH GOVEA on 04/19/19 101 Multivits-Minerals/FA/Lycopene (One Daily Men's Health Tablet) 1 Each Tablet, 1 TAB PO DAILY, (Reported) Entered as Reported by: BARTOLOME COUCH on 04/14/19943 Nicotine (Nicotine Patch) 1 Each Patch.td24, 21 MG TD DAILY Prescribed by: JAYESH GOVEA on 04/19/19 1013 Prednisone (Prednisone) 10 Mg Tab.ds.pk, 10 MG PO DAILY Prescribed by: JAYESH GOVEA on 04/19/19 1013 Ranitidine HCl (Ranitidine HCl) 150 Mg Tablet, 75 MG PO BID, (Reported) Entered as Reported by: BARTOLOME COUCH on 04/14/19 0944 Tamsulosin HCl (Flomax) 0.4 Mg Cap, 0.4 MG PO DAILY, (Reported) Entered as Reported by: BARTOLOME COUCH on 04/14/19 0917 Triamcinolone Acetonide (Nasacort) 10.8 Ml [place], 2 SPRAYS NS HS, (Reported) Entered as Reported by: BARTOLOME COUCH on 04/14/19 0944 Zolpidem Tartrate (Zolpidem Tartrate) 5 Mg Tablet, 5 MG PO HS, (Reported) Entered as Reported by: BARTOLOME COUCH on 04/14/19 09 [Zolpidem Tartrate] 5 MG TAB, 0 MG PO HS Prescribed by: JAYESH GOVEA on 04/20/19 1102 Review of Systems Review of Systems Constitutional: No fever Eyes: Denies Blurred Vision Ears, Nose, Mouth, Throat: no symptoms reported Respiratory: no symptoms reported Cardiovascular: no symptoms reported Gastrointestinal: no symptoms reported Genitourinary: no symptoms reported Musculoskeletal: no symptoms reported Skin: other (skin tear) Psychiatric/Neurological: No Symptoms Reported All Other Systems Reviewed Negative Unless Noted: Yes Past Dnleuka-Olafyy-Gsuylx Hx Patient Social History Tobacco Use?: Yes Tobacco type used: Cigarettes Seasonal Allergies Seasonal Allergies: No Past Medical History Surgeries: Yes CABG Respiratory: Yes COPD Cardiac: Yes Chronic Edema/Swelling, Coronary Artery Disease, High Cholesterol, Hypertension Neurological: No Genitourinary: Yes Prostate Problems Gastrointestinal: No (CONSTIPATION) Musculoskeletal: Yes (ARTHRITIS) Endocrine: No HEENT: No Cancer: Yes Prostate Psychosocial: No Integumentary: No Blood Disorders: No Adverse Reaction/Blood Tranf: No Family Medical History No Pertinent Family Hx Physical Exam Vital Signs Vital Signs - First Documented 06/09/22 13:25 Temp 36.8 Pulse 91 Resp 18 B/P (MAP) 147/66 (93) Pulse Ox 94 O2 Delivery Room Air Capillary Refill : Height, Weight, BMI Height: 5'7.00" Weight: 146lbs. 0.2oz. 61.970359kt; 22.00 BMI Method:Stated General Appearance: WD/WN, no apparent distress HEENT: PERRL/EOMI, normal ENT inspection, pharynx normal Neck: non-tender, full range of motion, supple, normal inspection Cardiovascular: regular rate, rhythm, no edema, no murmur Respiratory: chest non-tender, lungs clear, normal breath sounds, no respiratory distress, no accessory muscle use Gastrointestinal: normal bowel sounds, non tender, soft; No distended, No guarding, No rebound Back: normal inspection, no CVA tenderness, no vertebral tenderness Extremities: no pedal edema, no calf tenderness, normal capillary refill, other (Large skin tear to the left arm above the elbow, some to the left forearm, small skin tear to the right hand) Neurologic/Psychiatric: no motor/sensory deficits, alert, normal mood/affect, oriented x 3 Skin: normal color, warm/dry Lymphatic: no adenopathy Keny Coma Score Best Eye Response: (4) Open Spontaneously Best Verbal Response: (5) Oriented Best Motor Response: (6) Obeys Commands Progress/Results/Core Measures Results/Orders Vital Signs/I&O 06/09/22 13:25 Temp 36.8 Pulse 91 Resp 18 B/P (MAP) 147/66 (93) Pulse Ox 94 O2 Delivery Room Air Progress Progress Note : Progress Note 81-year-old male coming in after he slipped backwards, landed seated in a chair, scraped his left arm and right hand against the wooden part of the chair causing a skin tear last night. ABCs were intact and vital stable on presentation. Physical exam with skin tears that are not amenable to any type of closure. There were cleaned, antibiotic ointment placed, and then dressings were placed on them. He will need dressing changes daily which he was given resources for. He needs to follow-up with his regular doctor in the next 1 to 2 weeks for wound check. It was a low-energy fall, did not hit his head or pass out. I do not believe he needs any imaging of his head or neck. Departure Impression Primary Impression: Fall Qualified Codes: W19.XXXA - Unspecified fall, initial encounter Additional Impression: Skin tear Disposition: 01 HOME, SELF-CARE Condition: Stable Departure-Patient Inst. Decision time for Depature: 14:35 Referrals: AUBREY GRAY MD (PCP/Family) Primary Care Physician Patient Instructions: Wound Care ED, Preventing Falls ED Add. Discharge Instructions: Put antibiotic ointment and wrap the white gauze around the left arm daily. Use regular bandaids for the smaller wounds. Follow-up with your regular doctor in 1 to 2 weeks for wound check. If you have redness spreading up your arm rapidly, pus coming out of it, or new fevers then I want you to be evaluated for potential infection. Call your doctor and ask if you are able to take extra of your hydrocodone while you are in this much pain. JIHAN BANDA MD Jun 09, 2022 13:31
[2022-06-09 14:24] VITALS: BP 147/66
== END 2022-06-09 14:35 | disposition home or self-care (01) ==
LOC: EDUNIT# 13:24 → ER FS 13:25
DX: S41.112A Laceration without foreign body of left upper arm, initial encounter (principal); S51.812A Laceration without foreign body of left forearm, initial encounter; S61.411A Laceration without foreign body of right hand, initial encounter; J44.9 Chronic obstructive pulmonary disease, unspecified; F17.210 Nicotine dependence, cigarettes, uncomplicated; Z87.09 Personal history of other diseases of the respiratory system; Z99.81 Dependence on supplemental oxygen; W01.190A Fall on same level from slipping, tripping and stumbling with subsequent striking against furniture, initial encounter
CPT/HCPCS: 99283; A6223